=== PATIENT | female | born 1955 | race Caucasian/White ===

== ENCOUNTER 2017-10-21 19:09 | Inpatient (IN) ==
[~2017-10-21 19:09] MED LIST: ACETAMINOPHEN 325 MG TABLET PO PRN; BISACODYL 5 MG TABLET PO PRN; DEXTROSE 50% 25 GM/50 ML VIAL IV PRN; FUROSEMIDE 40 MG/4 ML VIAL IV ONE; GLUCAGON 1 MG VIAL IM PRN; LACTULOSE 20 GM/30 ML UDCUP PO PRN; MAGNESIUM SULF RIDER 2 GM in PREMIX 1 EACH IV PRN; MAGNESIUM SULF RIDER 4 GM in PREMIX 1 EACH IV PRN; MORPHINE 2 MG/1 ML SYRINGE IV PRN; ONDANSETRON 4 MG/2 ML VIAL IV PRN; ZALEPLON 5 MG CAPSULE PO PRN; diphenhydrAMINE CAP 25 MG CAPSULE PO PRN; guaiFENesin/DM ER 600-30 MG TABLET PO PRN
[2017-10-21 20:11] LABS: Basophils # 0.1 10*3/uL (0.0-0.2); Basophils % 0.6 % (0.0-0.8); Eosinophils # 0.2 10*3/uL (0.0-0.87); Eosinophils % 1.7 % (0.00-10.9); Hemoglobin 8.6 GM/DL (12.0-16.0); Immature Granulocytes % 0.6 %; Immature Granulocytes Absolute 0.06 #; Lymphocytes # 1.2 10*3/uL (1.4-4.0); Lymphocytes % 12.7 % (21.3-54.2); Mean Corpuscular HGB Conc 31.9 GM/DL (32-36); Mean Corpuscular Hemoglobin 29 PG (27-34); Mean Corpuscular Volume 89.7 FL (87-102); Mean Platelet Volume 9.3 FL (9.6-12.0); Monocytes % 10.2 % (1.7-12.7); Neutrophils # 6.9 10*3/uL (1.4-7.4); Neutrophils % 74.2 % (38.7-73.9); Platelet Count 484 T/CUMM (130-400); Red Blood Count 3.01 MC/CUMM (3.8-5.5); Red Cell Distribution Width 14.8 % (9.3-17.3); White Blood Count 9.3 T/CUMM (4-12)
[2017-10-21] MEDS ORDERED: ZALEPLON 5 MG CAPSULE PO PRN (20:30)
[2017-10-21 20:38] LABS: CKMB % 3.4 %; Troponin I Only 0.037 NG/ML (0.00-0.045)
[2017-10-21 20:41] LABS: Albumin 3.1 G/DL (3.4-5.0); Bilirubin,Total 0.4 MG/DL (0.2-1.0); Calcium 9.1 MG/DL (8.5-10.1); Osmolality,Calculated 289.7 MOS/KG (273-304); Total Protein 6.4 G/DL (6.4-8.3)
[2017-10-21] MEDS: ALBUTEROL 1.25 MG/3 ML NEB RESP TX SCH (20:42)
[2017-10-21] MEDS: INSULIN GLARGINE 100 UNIT/ML SUBCUT SCH (21:03)
[2017-10-21] MEDS: INSULIN REGULAR 100 UNIT/ML SUBCUT SCH (21:05)
[2017-10-21] MEDS: GABAPENTIN 300 MG CAPSULE PO SCH (21:05)
[2017-10-21] MEDS: ENOXAPARIN 30 MG/0.3 ML SYRINGE SUBCUT SCH (22:08)
[2017-10-21] MEDS: CIPROFLOXACIN/DEXAMETHASONE OTIC SUSP 7.5 ML BOTTLE LEFT EAR SCH (22:09)
[2017-10-22] MEDS: ALBUTEROL 1.25 MG/3 ML NEB RESP TX SCH ×7 (00:01→23:45)
[2017-10-22 04:29] LABS: Basophils # 0.1 10*3/uL (0.0-0.2); Basophils % 0.7 % (0.0-0.8); Eosinophils % 0.5 % (0.00-10.9); Hematocrit 25.2 VOL% (35.7-47.0); Immature Granulocytes % 0.6 %; Immature Granulocytes Absolute 0.05 #; Lymphocytes # 1.2 10*3/uL (1.4-4.0); Lymphocytes % 13.8 % (21.3-54.2); Mean Corpuscular HGB Conc 31.7 GM/DL (32-36); Mean Corpuscular Hemoglobin 29 PG (27-34); Mean Corpuscular Volume 89.7 FL (87-102); Mean Platelet Volume 9.7 FL (9.6-12.0); Monocytes # 1.1 10*3/uL (0.11-0.8); Monocytes % 11.9 % (1.7-12.7); Neutrophils # 6.4 10*3/uL (1.4-7.4); Neutrophils % 72.5 % (38.7-73.9); Platelet Count 437 T/CUMM (130-400); Red Blood Count 2.81 MC/CUMM (3.8-5.5); Red Cell Distribution Width 14.8 % (9.3-17.3); White Blood Count 8.8 T/CUMM (4-12)
[2017-10-22 04:47] LABS: Albumin 2.9 G/DL (3.4-5.0); Bilirubin,Total 0.5 MG/DL (0.2-1.0); Calcium 8.6 MG/DL (8.5-10.1); Osmolality,Calculated 293.5 MOS/KG (273-304); Potassium 5.9 MMOL/L (3.5-5.1); Risk Ratio 5.64; Total Protein 6.2 G/DL (6.4-8.3); VLDL CHOLESTEROL 22.6 MG/DL
[2017-10-22 04:49] LABS: CKMB % 2.9 %
[2017-10-22 04:50] LABS: Troponin I Only 0.053 NG/ML (0.00-0.045)
[2017-10-22] MEDS: INSULIN REGULAR 100 UNIT/ML SUBCUT SCH ×10 (05:08→21:54)
[2017-10-22] MEDS: CETIRIZINE 10 MG TABLET PO SCH (08:31)
[2017-10-22] MEDS: LOSARTAN 25 MG TABLET PO SCH (08:31)
[2017-10-22] MEDS: CLOPIDOGREL 75 MG TABLET PO SCH (08:31)
[2017-10-22] MEDS: VENLAFAXINE XR 75 MG CAPSULE PO SCH (08:31)
[2017-10-22] MEDS: PANTOPRAZOLE 40 MG TABLET PO SCH (08:31)
[2017-10-22] MEDS: CHOLECALCIFEROL 5,000 UNIT TABLET PO SCH (08:31)
[2017-10-22] MEDS: MULTIVITAMIN (CENTRUM) TABLET PO SCH (08:31)
[2017-10-22] MEDS: ASPIRIN 325 MG TABLET PO SCH (08:31)
[2017-10-22] MEDS: GABAPENTIN 300 MG CAPSULE PO SCH ×2 (08:32→21:54)
[2017-10-22] MEDS ORDERED: VENLAFAXINE XR 75 MG CAPSULE PO SCH (09:00)
[2017-10-22] MEDS ORDERED: PANTOPRAZOLE 40 MG TABLET PO SCH (09:00)
[2017-10-22] MEDS: CIPROFLOXACIN/DEXAMETHASONE OTIC SUSP 7.5 ML BOTTLE LEFT EAR SCH ×2 (09:05→21:54)
[2017-10-22 11:36] LABS: CKMB % 2.9 %
[2017-10-22 11:41] LABS: Troponin I Only 0.051 NG/ML (0.00-0.045)
[2017-10-22] MEDS: DEXTROSE 50% 25 GM/50 ML VIAL IV PRN (12:15)
[2017-10-22] MEDS: metOLazone 2.5 MG TABLET PO SCH (14:16)
[2017-10-22] MEDS ORDERED: LEVOFLOXACIN 500 MG TABLET PO SCH (18:14)
[2017-10-22] MEDS: INSULIN GLARGINE 100 UNIT/ML SUBCUT SCH (21:54)
[2017-10-22] MEDS: ENOXAPARIN 30 MG/0.3 ML SYRINGE SUBCUT SCH (21:54)
[2017-10-23] MEDS: ALBUTEROL 1.25 MG/3 ML NEB RESP TX SCH ×5 (03:16→20:31)
[2017-10-23 05:05] LABS: Basophils % 0.5 % (0.0-0.8); Eosinophils # 0.3 10*3/uL (0.0-0.87); Eosinophils % 2.8 % (0.00-10.9); Hematocrit 24.5 VOL% (35.7-47.0); Hemoglobin 7.8 GM/DL (12.0-16.0); Immature Granulocytes % 0.5 %; Immature Granulocytes Absolute 0.04 #; Lymphocytes # 1.7 10*3/uL (1.4-4.0); Lymphocytes % 19.1 % (21.3-54.2); Mean Corpuscular HGB Conc 31.8 GM/DL (32-36); Mean Corpuscular Hemoglobin 28 PG (27-34); Mean Corpuscular Volume 88.8 FL (87-102); Mean Platelet Volume 9.3 FL (9.6-12.0); Monocytes # 1.2 10*3/uL (0.11-0.8); Monocytes % 13.8 % (1.7-12.7); Neutrophils # 5.6 10*3/uL (1.4-7.4); Neutrophils % 63.3 % (38.7-73.9); Platelet Count 402 T/CUMM (130-400); Red Blood Count 2.76 MC/CUMM (3.8-5.5); Red Cell Distribution Width 14.9 % (9.3-17.3); White Blood Count 8.9 T/CUMM (4-12)
[2017-10-23 05:54] LABS: Free T4 (Free Thyroxine) 0.91 NG/DL (0.76-1.46); Magnesium 2.3 MG/DL (1.8-2.4); Thyroid Stimulating Hormone 1.11 uIU/ml (0.358-3.74)
[2017-10-23 05:55] LABS: Alanine Aminotransferase 10 U/L (13-56); Albumin 2.5 G/DL (3.4-5.0); Alkaline Phosphatase 119 U/L (45-117); Aspartate Amino Transferase 17 U/L (0-37); Bilirubin,Total < 0.39 MG/DL (0.2-1.0); Blood Urea Nitrogen 37 MG/DL (7-18); Calcium 8.9 MG/DL (8.5-10.1); Glucose 96 MG/DL (74-106); Osmolality,Calculated 283.7 MOS/KG (273-304); Potassium 4.6 MMOL/L (3.5-5.1); Sodium 138 MMOL/L (136-145); Total Protein 5.7 G/DL (6.4-8.3)
[2017-10-23] MEDS: INSULIN REGULAR 100 UNIT/ML SUBCUT SCH ×7 (08:28→22:49)
[2017-10-23] MEDS: MULTIVITAMIN (CENTRUM) TABLET PO SCH (08:29)
[2017-10-23] MEDS: CHOLECALCIFEROL 5,000 UNIT TABLET PO SCH (08:29)
[2017-10-23] MEDS: ASPIRIN 325 MG TABLET PO SCH (08:29)
[2017-10-23] MEDS: VENLAFAXINE XR 75 MG CAPSULE PO SCH (08:29)
[2017-10-23] MEDS: CLOPIDOGREL 75 MG TABLET PO SCH (08:30)
[2017-10-23] MEDS: LOSARTAN 25 MG TABLET PO SCH (08:30)
[2017-10-23] MEDS: CETIRIZINE 10 MG TABLET PO SCH (08:30)
[2017-10-23] MEDS: metOLazone 2.5 MG TABLET PO SCH (08:30)
[2017-10-23] MEDS: PANTOPRAZOLE 40 MG TABLET PO SCH (08:30)
[2017-10-23] MEDS: GABAPENTIN 300 MG CAPSULE PO SCH ×2 (08:30→22:49)
[2017-10-23] MEDS: CIPROFLOXACIN/DEXAMETHASONE OTIC SUSP 7.5 ML BOTTLE LEFT EAR SCH ×2 (08:30→22:49)
[2017-10-23] MEDS ORDERED: SODIUM CHLORIDE 0.9% 1,000 ML IV PRN (11:38)
[2017-10-23] MEDS ORDERED: FUROSEMIDE 40 MG/4 ML VIAL IV ONE (15:30)
[2017-10-23 17:38] LABS: Apearance,Urine CLEAR (Clear); Bacteria,Urine Occasional /HPF (Few); Bilirubin,Urine Negative (Negative); Blood, Urine Small mg/dL (Negative); Glucose,Urine (UA) 150 mg/dL (Negative); Ketones,Urine Negative (Negative); Nitrite,Urine Negative (Negative); Protein,Urine 100 MG/DL; RBC,Urine 4 /HPF (0-4); Squamous Epithelial Cell,Urine Occasional /HPF (0-10); Urine Color Yellow (Yellow); Urine Specific Gravity 1.009 (1.001-1.035); Urine Urobilinogen < 2.0 EU/DL (0.2-1.0); WBC,Urine 3 /HPF (0-6)
[2017-10-23] MEDS: INSULIN GLARGINE 100 UNIT/ML SUBCUT SCH (22:49)
[2017-10-23] MEDS: ENOXAPARIN 30 MG/0.3 ML SYRINGE SUBCUT SCH (22:50)
[2017-10-24] MEDS: ALBUTEROL 1.25 MG/3 ML NEB RESP TX SCH ×6 (00:42→19:41)
[2017-10-24 05:56] LABS: Basophils # 0.1 10*3/uL (0.0-0.2); Basophils % 0.7 % (0.0-0.8); Eosinophils # 0.4 10*3/uL (0.0-0.87); Eosinophils % 4.1 % (0.00-10.9); Hematocrit 31.6 VOL% (35.7-47.0); Hemoglobin 10.3 GM/DL (12.0-16.0); Immature Granulocytes % 0.4 %; Immature Granulocytes Absolute 0.04 #; Lymphocytes # 1.3 10*3/uL (1.4-4.0); Lymphocytes % 14.3 % (21.3-54.2); Mean Corpuscular HGB Conc 32.6 GM/DL (32-36); Mean Corpuscular Hemoglobin 29 PG (27-34); Mean Platelet Volume 9.5 FL (9.6-12.0); Monocytes % 10.8 % (1.7-12.7); Neutrophils # 6.2 10*3/uL (1.4-7.4); Neutrophils % 69.7 % (38.7-73.9); Platelet Count 441 T/CUMM (130-400); Red Blood Count 3.59 MC/CUMM (3.8-5.5); Red Cell Distribution Width 15.7 % (9.3-17.3)
[2017-10-24 06:39] LABS: Albumin 2.8 G/DL (3.4-5.0); Osmolality,Calculated 284.5 MOS/KG (273-304); Potassium 5.5 MMOL/L (3.5-5.1); Total Protein 6.3 G/DL (6.4-8.3)
[2017-10-24] MEDS: CLOPIDOGREL 75 MG TABLET PO SCH (08:54)
[2017-10-24] MEDS: INSULIN REGULAR 100 UNIT/ML SUBCUT SCH ×7 (08:54→22:06)
[2017-10-24] MEDS: GABAPENTIN 300 MG CAPSULE PO SCH ×2 (08:54→21:17)
[2017-10-24] MEDS: LOSARTAN 25 MG TABLET PO SCH (08:54)
[2017-10-24] MEDS: VENLAFAXINE XR 75 MG CAPSULE PO SCH (08:55)
[2017-10-24] MEDS: FUROSEMIDE 20 MG TABLET PO SCH (08:55)
[2017-10-24] MEDS: ASPIRIN 325 MG TABLET PO SCH (08:55)
[2017-10-24] MEDS: CHOLECALCIFEROL 5,000 UNIT TABLET PO SCH (08:55)
[2017-10-24] MEDS: PANTOPRAZOLE 40 MG TABLET PO SCH (08:55)
[2017-10-24] MEDS: metOLazone 2.5 MG TABLET PO SCH (08:55)
[2017-10-24] MEDS: MULTIVITAMIN (CENTRUM) TABLET PO SCH (08:55)
[2017-10-24] MEDS: CIPROFLOXACIN/DEXAMETHASONE OTIC SUSP 7.5 ML BOTTLE LEFT EAR SCH ×2 (08:55→22:38)
[2017-10-24] MEDS: CETIRIZINE 10 MG TABLET PO SCH (08:55)
[2017-10-24] MEDS: ENOXAPARIN 30 MG/0.3 ML SYRINGE SUBCUT SCH (21:17)
[2017-10-24] MEDS: INSULIN GLARGINE 100 UNIT/ML SUBCUT SCH (22:06)
[2017-10-25] MEDS: ALBUTEROL 1.25 MG/3 ML NEB RESP TX SCH ×7 (00:29→22:30)
[2017-10-25] MEDS: INSULIN REGULAR 100 UNIT/ML SUBCUT SCH ×6 (04:45→17:27)
[2017-10-25] MEDS: cloNIDine 0.1 MG TABLET PO PRN ×2 (05:14→21:57)
[2017-10-25 07:13] LABS: Calcium 8.7 MG/DL (8.5-10.1); Magnesium 2.3 MG/DL (1.8-2.4); Osmolality,Calculated 297.5 MOS/KG (273-304); Potassium 5.6 MMOL/L (3.5-5.1)
[2017-10-25] MEDS: ASPIRIN 325 MG TABLET PO SCH (09:07)
[2017-10-25] MEDS: PANTOPRAZOLE 40 MG TABLET PO SCH (09:07)
[2017-10-25] MEDS: FUROSEMIDE 20 MG TABLET PO SCH (09:07)
[2017-10-25] MEDS: MULTIVITAMIN (CENTRUM) TABLET PO SCH (09:07)
[2017-10-25] MEDS: CHOLECALCIFEROL 5,000 UNIT TABLET PO SCH (09:07)
[2017-10-25] MEDS: VENLAFAXINE XR 75 MG CAPSULE PO SCH (09:07)
[2017-10-25] MEDS: CIPROFLOXACIN/DEXAMETHASONE OTIC SUSP 7.5 ML BOTTLE LEFT EAR SCH ×2 (09:08→21:57)
[2017-10-25] MEDS: metOLazone 2.5 MG TABLET PO SCH (09:08)
[2017-10-25] MEDS: GABAPENTIN 300 MG CAPSULE PO SCH ×2 (09:08→21:57)
[2017-10-25] MEDS: CETIRIZINE 10 MG TABLET PO SCH (09:08)
[2017-10-25] MEDS: CLOPIDOGREL 75 MG TABLET PO SCH (10:10)
[2017-10-25] MEDS: DEXTROSE 50% 25 GM/50 ML VIAL IV PRN (12:08)
[2017-10-25] MEDS: FUROSEMIDE 40 MG/4 ML VIAL IV SCH (16:51)
[2017-10-25] MEDS: INSULIN GLARGINE 100 UNIT/ML SUBCUT SCH (21:56)
[2017-10-25] MEDS: ENOXAPARIN 30 MG/0.3 ML SYRINGE SUBCUT SCH (21:57)
[2017-10-26] MEDS: ALBUTEROL 1.25 MG/3 ML NEB RESP TX SCH ×6 (04:20→23:31)
[2017-10-26 05:52] LABS: Basophils # 0.1 10*3/uL (0.0-0.2); Basophils % 0.9 % (0.0-0.8); Eosinophils # 0.3 10*3/uL (0.0-0.87); Eosinophils % 4.5 % (0.00-10.9); Hematocrit 33.1 VOL% (35.7-47.0); Hemoglobin 10.6 GM/DL (12.0-16.0); Immature Granulocytes % 0.4 %; Immature Granulocytes Absolute 0.03 #; Lymphocytes # 1.2 10*3/uL (1.4-4.0); Lymphocytes % 17.4 % (21.3-54.2); Mean Corpuscular Hemoglobin 28 PG (27-34); Mean Corpuscular Volume 87.1 FL (87-102); Mean Platelet Volume 9.6 FL (9.6-12.0); Monocytes % 13.8 % (1.7-12.7); Neutrophils # 4.4 10*3/uL (1.4-7.4); Platelet Count 412 T/CUMM (130-400); Red Cell Distribution Width 14.8 % (9.3-17.3); White Blood Count 7.1 T/CUMM (4-12)
[2017-10-26 06:09] LABS: Calcium 8.5 MG/DL (8.5-10.1); Magnesium 2.3 MG/DL (1.8-2.4); Osmolality,Calculated 294.8 MOS/KG (273-304); Potassium 5.4 MMOL/L (3.5-5.1)
[2017-10-26] MEDS: INSULIN REGULAR 100 UNIT/ML SUBCUT SCH ×4 (06:58→16:42)
[2017-10-26] MEDS ORDERED: GLUCAGON 1 MG VIAL IM PRN (08:36)
[2017-10-26] MEDS ORDERED: DEXTROSE 50% 25 GM/50 ML VIAL IV PRN (08:36)
[2017-10-26] MEDS: MULTIVITAMIN (CENTRUM) TABLET PO SCH (09:11)
[2017-10-26] MEDS: FUROSEMIDE 40 MG/4 ML VIAL IV SCH ×2 (09:11→16:42)
[2017-10-26] MEDS: metOLazone 5 MG TABLET PO SCH (09:11)
[2017-10-26] MEDS: ASPIRIN 325 MG TABLET PO SCH (09:11)
[2017-10-26] MEDS: CETIRIZINE 10 MG TABLET PO SCH (09:11)
[2017-10-26] MEDS: GABAPENTIN 300 MG CAPSULE PO SCH ×2 (09:11→20:59)
[2017-10-26] MEDS: VENLAFAXINE XR 75 MG CAPSULE PO SCH (09:11)
[2017-10-26] MEDS: PANTOPRAZOLE 40 MG TABLET PO SCH (09:11)
[2017-10-26] MEDS: CIPROFLOXACIN/DEXAMETHASONE OTIC SUSP 7.5 ML BOTTLE LEFT EAR SCH ×2 (09:12→21:00)
[2017-10-26] MEDS: CHLORHEXIDINE 0.12% ORAL RINSE 60 ML BOTTLE SWISH/SPIT SCH ×2 (09:19→21:00)
[2017-10-26] MEDS: CHOLECALCIFEROL 5,000 UNIT TABLET PO SCH (09:19)
[2017-10-26] MEDS: cloNIDine 0.1 MG TABLET PO PRN (18:57)
[2017-10-26] MEDS: ENOXAPARIN 30 MG/0.3 ML SYRINGE SUBCUT SCH (20:58)
[2017-10-26] MEDS: INSULIN GLARGINE 100 UNIT/ML SUBCUT SCH (20:59)
[2017-10-26] MEDS: SODIUM CHLORIDE 0.9% 1,000 ML IV SCH (21:58)
[2017-10-27] MEDS: ALBUTEROL 1.25 MG/3 ML NEB RESP TX SCH ×5 (03:23→20:55)
[2017-10-27 03:30] LABS: ABG Base Excess 2.7 MMOL/L (-2.5-2.5); ABG HCO3 26.8 MMOL/L (20-26); ABG Oxygen Saturation 96.4 % (95-100); ABG PCO2 44.6 MM HG (35-48); ABG PH 7.404 (7.35-7.45); ABG PO2 77.9 MM HG (80-95)
[2017-10-27 06:01] LABS: Basophils # 0.1 10*3/uL (0.0-0.2); Basophils % 0.8 % (0.0-0.8); Eosinophils # 0.4 10*3/uL (0.0-0.87); Eosinophils % 4.7 % (0.00-10.9); Hematocrit 34.3 VOL% (35.7-47.0); Hemoglobin 11.3 GM/DL (12.0-16.0); Immature Granulocytes % 0.3 %; Immature Granulocytes Absolute 0.02 #; Lymphocytes # 1.7 10*3/uL (1.4-4.0); Lymphocytes % 22.2 % (21.3-54.2); Mean Corpuscular HGB Conc 32.9 GM/DL (32-36); Mean Corpuscular Hemoglobin 29 PG (27-34); Mean Corpuscular Volume 87.1 FL (87-102); Mean Platelet Volume 9.3 FL (9.6-12.0); Monocytes # 0.8 10*3/uL (0.11-0.8); Monocytes % 10.3 % (1.7-12.7); Neutrophils # 4.9 10*3/uL (1.4-7.4); Neutrophils % 61.7 % (38.7-73.9); Platelet Count 420 T/CUMM (130-400); Red Blood Count 3.94 MC/CUMM (3.8-5.5); Red Cell Distribution Width 14.7 % (9.3-17.3); White Blood Count 7.9 T/CUMM (4-12)
[2017-10-27 06:22] LABS: Albumin 2.7 G/DL (3.4-5.0); Bilirubin,Total 0.7 MG/DL (0.2-1.0); Calcium 8.8 MG/DL (8.5-10.1); Osmolality,Calculated 287.2 MOS/KG (273-304); Potassium 4.8 MMOL/L (3.5-5.1); Total Protein 6.3 G/DL (6.4-8.3)
[2017-10-27] MEDS: INSULIN REGULAR 100 UNIT/ML SUBCUT SCH ×4 (06:56→16:21)
[2017-10-27] MEDS: CETIRIZINE 10 MG TABLET PO SCH (08:43)
[2017-10-27] MEDS: metOLazone 5 MG TABLET PO SCH (08:44)
[2017-10-27] MEDS: PANTOPRAZOLE 40 MG TABLET PO SCH (08:44)
[2017-10-27] MEDS: GABAPENTIN 300 MG CAPSULE PO SCH ×2 (08:44→21:20)
[2017-10-27] MEDS: CHOLECALCIFEROL 5,000 UNIT TABLET PO SCH (08:44)
[2017-10-27] MEDS: FUROSEMIDE 40 MG/4 ML VIAL IV SCH ×2 (08:44→16:17)
[2017-10-27] MEDS: ASPIRIN 325 MG TABLET PO SCH (08:44)
[2017-10-27] MEDS: MULTIVITAMIN (CENTRUM) TABLET PO SCH (08:44)
[2017-10-27] MEDS: VENLAFAXINE XR 75 MG CAPSULE PO SCH (08:44)
[2017-10-27] MEDS: SODIUM CHLORIDE 0.9% 1,000 ML IV SCH (09:05)
[2017-10-27] MEDS: CIPROFLOXACIN/DEXAMETHASONE OTIC SUSP 7.5 ML BOTTLE LEFT EAR SCH ×2 (09:19→21:20)
[2017-10-27] MEDS: CHLORHEXIDINE 0.12% ORAL RINSE 60 ML BOTTLE SWISH/SPIT SCH ×2 (09:20→21:20)
[2017-10-27] MEDS: INSULIN GLARGINE 100 UNIT/ML SUBCUT SCH (21:19)
[2017-10-27] MEDS: ENOXAPARIN 30 MG/0.3 ML SYRINGE SUBCUT SCH (21:20)
[2017-10-28] MEDS: ALBUTEROL 1.25 MG/3 ML NEB RESP TX SCH ×6 (00:05→20:28)
[2017-10-28] MEDS: ASPIRIN 325 MG TABLET PO SCH (08:53)
[2017-10-28] MEDS: VENLAFAXINE XR 75 MG CAPSULE PO SCH (08:53)
[2017-10-28] MEDS: PANTOPRAZOLE 40 MG TABLET PO SCH (08:53)
[2017-10-28] MEDS: CHLORHEXIDINE 0.12% ORAL RINSE 60 ML BOTTLE SWISH/SPIT SCH ×2 (08:54→20:51)
[2017-10-28] MEDS: CIPROFLOXACIN/DEXAMETHASONE OTIC SUSP 7.5 ML BOTTLE LEFT EAR SCH ×2 (08:54→20:50)
[2017-10-28] MEDS: GABAPENTIN 300 MG CAPSULE PO SCH ×2 (08:54→20:50)
[2017-10-28] MEDS: CHOLECALCIFEROL 5,000 UNIT TABLET PO SCH (08:54)
[2017-10-28] MEDS: MULTIVITAMIN (CENTRUM) TABLET PO SCH (08:54)
[2017-10-28] MEDS: metOLazone 5 MG TABLET PO SCH (08:54)
[2017-10-28] MEDS: SODIUM CHLORIDE 0.9% 1,000 ML IV SCH (08:54)
[2017-10-28] MEDS: FUROSEMIDE 40 MG/4 ML VIAL IV SCH ×2 (08:55→16:50)
[2017-10-28] MEDS: CETIRIZINE 10 MG TABLET PO SCH (08:59)
[2017-10-28] MEDS: INSULIN REGULAR 100 UNIT/ML SUBCUT SCH ×2 (09:04→12:45)
[2017-10-28] MEDS: INSULIN LISPRO 100 UNIT/ML SUBCUT SCH (16:31)
[2017-10-28] MEDS: INSULIN GLARGINE 100 UNIT/ML SUBCUT SCH (20:49)
[2017-10-28] MEDS: ENOXAPARIN 30 MG/0.3 ML SYRINGE SUBCUT SCH (20:49)
[2017-10-29] MEDS: ALBUTEROL 1.25 MG/3 ML NEB RESP TX SCH ×7 (00:45→23:59)
[2017-10-29 04:52] LABS: Basophils # 0.1 10*3/uL (0.0-0.2); Basophils % 0.9 % (0.0-0.8); Eosinophils # 0.4 10*3/uL (0.0-0.87); Eosinophils % 5.7 % (0.00-10.9); Hematocrit 35.6 VOL% (35.7-47.0); Hemoglobin 11.6 GM/DL (12.0-16.0); Immature Granulocytes % 0.3 %; Immature Granulocytes Absolute 0.02 #; Lymphocytes # 2.2 10*3/uL (1.4-4.0); Lymphocytes % 27.8 % (21.3-54.2); Mean Corpuscular HGB Conc 32.6 GM/DL (32-36); Mean Corpuscular Hemoglobin 28 PG (27-34); Mean Platelet Volume 9.7 FL (9.6-12.0); Monocytes # 0.8 10*3/uL (0.11-0.8); Monocytes % 10.7 % (1.7-12.7); Neutrophils # 4.3 10*3/uL (1.4-7.4); Neutrophils % 54.6 % (38.7-73.9); Platelet Count 412 T/CUMM (130-400); Red Blood Count 4.14 MC/CUMM (3.8-5.5); Red Cell Distribution Width 14.3 % (9.3-17.3); White Blood Count 7.8 T/CUMM (4-12)
[2017-10-29 05:20] LABS: Calcium 8.9 MG/DL (8.5-10.1); Magnesium 2.4 MG/DL (1.8-2.4); Osmolality,Calculated 292.1 MOS/KG (273-304)
[2017-10-29] MEDS: CHOLECALCIFEROL 5,000 UNIT TABLET PO SCH (08:43)
[2017-10-29] MEDS: VENLAFAXINE XR 75 MG CAPSULE PO SCH (08:43)
[2017-10-29] MEDS: ASPIRIN 325 MG TABLET PO SCH (08:44)
[2017-10-29] MEDS: GABAPENTIN 300 MG CAPSULE PO SCH ×2 (08:44→21:58)
[2017-10-29] MEDS: INSULIN LISPRO 100 UNIT/ML SUBCUT SCH ×4 (08:44→21:57)
[2017-10-29] MEDS: FUROSEMIDE 40 MG/4 ML VIAL IV SCH ×2 (08:44→21:57)
[2017-10-29] MEDS: MULTIVITAMIN (CENTRUM) TABLET PO SCH (08:44)
[2017-10-29] MEDS: metOLazone 5 MG TABLET PO SCH (08:44)
[2017-10-29] MEDS: PANTOPRAZOLE 40 MG TABLET PO SCH (08:44)
[2017-10-29] MEDS: CETIRIZINE 10 MG TABLET PO SCH (08:44)
[2017-10-29] MEDS: CHLORHEXIDINE 4% SOLN 118 ML BOTTLE TOP SCH ×3 (08:46→22:11)
[2017-10-29] MEDS: CIPROFLOXACIN/DEXAMETHASONE OTIC SUSP 7.5 ML BOTTLE LEFT EAR SCH ×2 (10:57→22:11)
[2017-10-29] MEDS: CHLORHEXIDINE 0.12% ORAL RINSE 60 ML BOTTLE SWISH/SPIT SCH ×2 (10:57→22:11)
[2017-10-29] MEDS: SODIUM CHLORIDE 0.9% 1,000 ML IV SCH ×2 (10:57→13:13)
[2017-10-29 17:51] LABS: % Iron Saturation 19.7 % (18-50)
[2017-10-29] MEDS: INSULIN GLARGINE 100 UNIT/ML SUBCUT SCH (21:58)
[2017-10-30] MEDS: INSULIN LISPRO 100 UNIT/ML SUBCUT ONE ×2 (00:28→01:14)
[2017-10-30] MEDS ORDERED: INSULIN LISPRO 100 UNIT/ML SUBCUT ONE (00:34)
[2017-10-30] MEDS: ALBUTEROL 1.25 MG/3 ML NEB RESP TX SCH ×3 (03:56→16:09)
[2017-10-30] MEDS ORDERED: VANCOMYCIN 1,000 MG VIAL ONE (05:31)
[2017-10-30] MEDS ORDERED: FAMOTIDINE 20 MG TABLET PO ONE (06:00)
[2017-10-30] MEDS ORDERED: LORazepam 1 MG TABLET PO ONE (06:00)
[2017-10-30 06:59] LABS: Basophils # 0.1 10*3/uL (0.0-0.2); Basophils % 0.9 % (0.0-0.8); Eosinophils # 0.5 10*3/uL (0.0-0.87); Eosinophils % 6.6 % (0.00-10.9); Hemoglobin 10.8 GM/DL (12.0-16.0); Immature Granulocytes % 0.3 %; Immature Granulocytes Absolute 0.02 #; Lymphocytes # 1.6 10*3/uL (1.4-4.0); Lymphocytes % 21.3 % (21.3-54.2); Mean Corpuscular HGB Conc 32.7 GM/DL (32-36); Mean Corpuscular Hemoglobin 28 PG (27-34); Mean Corpuscular Volume 86.2 FL (87-102); Mean Platelet Volume 9.7 FL (9.6-12.0); Monocytes % 12.9 % (1.7-12.7); Neutrophils # 4.3 10*3/uL (1.4-7.4); Platelet Count 357 T/CUMM (130-400); Red Blood Count 3.83 MC/CUMM (3.8-5.5); Red Cell Distribution Width 14.2 % (9.3-17.3); White Blood Count 7.4 T/CUMM (4-12)
[2017-10-30] MEDS ORDERED: CEFUROXIME INJ 1,500 MG in SYRINGE 1 EACH IV ONE (07:00)
[2017-10-30 07:32] LABS: Magnesium 2.6 MG/DL (1.8-2.4); Osmolality,Calculated 289.5 MOS/KG (273-304); Potassium 4.6 MMOL/L (3.5-5.1)
[2017-10-30 08:58] LABS: ABG Base Excess 0.9 MMOL/L (-2.5-2.5); ABG HCO3 23.2 MMOL/L (20-26); ABG Oxygen Saturation 99.4 % (95-100); ABG PCO2 29.1 MM HG (35-48); ABG PO2 372.8 MM HG (80-95); ABG TCO2 24.1 MMOL/L (23-27); Glucose Heart Surgery 274 MG/DL (74-106); Hemoglobin Heart Surgery 10.2 G/DL (12.0-16.0); Ionized Calcium Arterial 1.03 MMOL/L (1.21-1.46); PCO2 Patient Temp Arterial 29.1 MMHG; PO2 Patient Temp Arterial 372.8 MM HG; Patient Temperature 37 CELCIUS; Potassium Heart/CVR 4.6 MMOL/L (3.5-5.1); Sodium Heart/CVR 127 MMOL/L (135-145)
[2017-10-30] MEDS ORDERED: NITROPRUSSIDE 50 MG/2 ML VIAL ONE (09:14)
[2017-10-30] MEDS ORDERED: PHENYLEPHRINE DRIP 40 MG/250 ML PREMIX IV ONE (09:14)
[2017-10-30] MEDS ORDERED: CALCIUM CHLORIDE 1,000 MG/10 ML SYRINGE IV ONE (09:15)
[2017-10-30 09:36] LABS: Apearance,Urine CLEAR (Clear); Bilirubin,Urine Negative (Negative); Blood, Urine Small mg/dL (Negative); Glucose,Urine (UA) 50 mg/dL (Negative); Ketones,Urine Negative (Negative); Nitrite,Urine Negative (Negative); Protein,Urine 100 MG/DL; RBC,Urine 1 /HPF (0-4); Urine Color Straw (Yellow); Urine Specific Gravity 1.006 (1.001-1.035); Urine Urobilinogen < 2.0 EU/DL (0.2-1.0)
[2017-10-30 09:49] LABS: Hematocrit Heart Surgery 24.2 PERCENT (37-47); Hemoglobin Heart Surgery 7.8 G/DL (12.0-16.0); PCO2 Patient Temp Venous 34.1 MM HG; PH Patient Temp Venous 7.432; PO2 Patient Temp Venous 34.2 MM HG; Potassium Heart/CVR 5.4 MMOL/L (3.5-5.1); VBG Base Excess -1.1 MEQ/L (0-4); VBG HCO3 23.3 MEQ/L (24-28); VBG Oxygen Saturation 78.6 %; VBG PCO2 39.4 MMHG (41-51); VBG PH 7.388; VBG PO2 42.1 MMHG (17-40)
[2017-10-30] MEDS ORDERED: INSULIN REGULAR 100 UNIT/ML ONE ×3 (09:53→11:50)
[2017-10-30 10:12] LABS: Hematocrit Heart Surgery 26.2 PERCENT (37-47); Hemoglobin Heart Surgery 8.4 G/DL (12.0-16.0); PCO2 Patient Temp Venous 33.5 MM HG; PH Patient Temp Venous 7.441; PO2 Patient Temp Venous 37.3 MM HG; Potassium Heart/CVR 4.7 MMOL/L (3.5-5.1); VBG Base Excess -0.8 MEQ/L (0-4); VBG HCO3 23.5 MEQ/L (24-28); VBG Oxygen Saturation 79.7 %; VBG PCO2 36.9 MMHG (41-51); VBG PH 7.412; VBG PO2 42.9 MMHG (17-40)
[2017-10-30] MEDS ORDERED: PROTAMINE SULFATE 250 MG/25 ML VIAL IV ONE (10:56)
[2017-10-30] MEDS ORDERED: MAGNESIUM SULFATE 1 GM/2 ML VIAL ONE (10:56)
[2017-10-30] MEDS ORDERED: SODIUM BICARBONATE 50 MEQ/50 ML SYRINGE IV ONE (10:56)
[2017-10-30] MEDS ORDERED: methylPREDNISolone SOD SUC 1,000 MG/8 ML VIAL ONE (10:56)
[2017-10-30] MEDS ORDERED: MANNITOL 12.5 GM/50 ML VIAL IV ONE (10:57)
[2017-10-30] MEDS ORDERED: DEXTROSE 5% KCL 20 MEQ 20 MEQ/1,000 ML BAG IV ONE (10:58)
[2017-10-30] MEDS ORDERED: FUROSEMIDE 20 MG/2 ML VIAL ONE (10:59)
[2017-10-30 11:05] LABS: ABG Base Excess -3.6 MMOL/L (-2.5-2.5); ABG HCO3 21.5 MMOL/L (20-26); ABG PCO2 38.7 MM HG (35-48); ABG PH 7.355 (7.35-7.45); ABG TCO2 20.3 MMOL/L (23-27); Glucose Heart Surgery 297 MG/DL (74-106); Hematocrit Heart Surgery 24.1 PERCENT (37-47); Hemoglobin Heart Surgery 7.7 G/DL (12.0-16.0); Ionized Calcium Arterial 1.18 MMOL/L (1.21-1.46); PCO2 Patient Temp Arterial 38.7 MMHG; PH Patient Temp Arterial 7.355; Patient Temperature 37 CELCIUS; Potassium Heart/CVR 4.4 MMOL/L (3.5-5.1); Sodium Heart/CVR 128 MMOL/L (135-145)
[2017-10-30] MEDS: SODIUM CHLORIDE 0.45% 1,000 ML IV SCH ×2 (12:00)
[2017-10-30] MEDS ORDERED: CALCIUM CHLORIDE 1,000 MG/10 ML VIAL IV ONE (12:18)
[2017-10-30] MEDS ORDERED: HEPARIN/NACL 0.9% 2 UNITS/ML 1,000 ML IV ONE (12:19)
[2017-10-30] MEDS ORDERED: SEVOFLURANE 1 UNIT/15 MINUTE INH ONE (12:19)
[2017-10-30] MEDS ORDERED: SUFentanil 250 MCG/5 ML AMP ONE (12:19)
[2017-10-30] MEDS ORDERED: ETOMIDATE 40 MG/20 ML VIAL IV ONE (12:20)
[2017-10-30] MEDS ORDERED: PHENYLEPHRINE 50 MG/5 ML VIAL ONE (12:20)
[2017-10-30] MEDS ORDERED: VECURONIUM 10 MG VIAL IV ONE (12:20)
[2017-10-30] MEDS ORDERED: MIDAZOLAM 10 MG/2 ML VIAL ONE (12:20)
[2017-10-30] MEDS ORDERED: MINERAL OIL/PETROLATUM OPH OINT 3.5 GM TUBE ONE (12:20)
[2017-10-30] MEDS ORDERED: SODIUM CHLORIDE 0.9% 200 ML IV ONE (12:21)
[2017-10-30] MEDS ORDERED: NITROGLYCERIN DRIP 50 MG/250 ML BOTTLE IV ONE (12:21)
[2017-10-30] MEDS ORDERED: SODIUM CHLORIDE 0.9% 250 ML IV ONE (12:21)
[2017-10-30] MEDS ORDERED: AMINOCAPROIC ACID 5,000 MG/20 ML VIAL IV ONE (12:21)
[2017-10-30] MEDS ORDERED: SODIUM CHLORIDE 0.9% 2,000 ML IV ONE (12:21)
[2017-10-30] MEDS ORDERED: PHENYLEPHRINE DRIP 40 MG/250 ML PREMIX IV PRN (12:29)
[2017-10-30] MEDS ORDERED: INSULIN REGULAR 100 UNIT/ML IV PRN (12:29)
[2017-10-30] MEDS ORDERED: NITROPRUSSIDE 100 MG in DEXTROSE 5% 250 ML IV PRN (12:29)
[2017-10-30] MEDS ORDERED: VECURONIUM 10 MG VIAL IV PRN ×2 (12:29)
[2017-10-30] MEDS ORDERED: POTASSIUM CHLORIDE RIDER 10 MEQ in PREMIX 1 EACH IV PRN (12:29)
[2017-10-30] MEDS ORDERED: LACTATED RINGERS 250 ML IV PRN (12:29)
[2017-10-30] MEDS ORDERED: MORPHINE 10 MG/1 ML VIAL IV PRN (12:29)
[2017-10-30] MEDS ORDERED: CALCIUM CHLORIDE 1,000 MG/10 ML SYRINGE IV PRN (12:29)
[2017-10-30] MEDS ORDERED: ACETAMINOPHEN 650 MG SUPP RECTAL PRN (12:29)
[2017-10-30] MEDS ORDERED: DEXTROSE 50% 25 GM/50 ML VIAL IV PRN ×2 (12:29)
[2017-10-30] MEDS ORDERED: MIDAZOLAM 10 MG/2 ML VIAL IV PRN (12:29)
[2017-10-30] MEDS ORDERED: ONDANSETRON 4 MG/2 ML VIAL IV PRN (12:29)
[2017-10-30] MEDS ORDERED: MAGNESIUM SULF RIDER 2 GM in PREMIX 1 EACH IV PRN (12:29)
[2017-10-30] MEDS ORDERED: MAGNESIUM SULF RIDER 4 GM in PREMIX 1 EACH IV PRN (12:29)
[2017-10-30 12:33] LABS: ABG Base Excess -2.2 MMOL/L (-2.5-2.5); ABG HCO3 22.6 MMOL/L (20-26); ABG PCO2 40.1 MM HG (35-48); ABG PH 7.365 (7.35-7.45); ABG TCO2 21.4 MMOL/L (23-27); Glucose Heart Surgery 214 MG/DL (74-106); Hematocrit Heart Surgery 24.9 PERCENT (37-47); Potassium Heart/CVR 4.8 MMOL/L (3.5-5.1)
[2017-10-30 12:40] LABS: Basophils % 0.3 % (0.0-0.8); Eosinophils # 0.2 10*3/uL (0.0-0.87); Eosinophils % 1.6 % (0.00-10.9); Hemoglobin 7.9 GM/DL (12.0-16.0); Immature Granulocytes % 0.8 %; Immature Granulocytes Absolute 0.09 #; Lymphocytes # 0.7 10*3/uL (1.4-4.0); Lymphocytes % 6.4 % (21.3-54.2); Mean Corpuscular HGB Conc 32.9 GM/DL (32-36); Mean Corpuscular Hemoglobin 29 PG (27-34); Mean Corpuscular Volume 87.9 FL (87-102); Mean Platelet Volume 9.9 FL (9.6-12.0); Monocytes # 0.8 10*3/uL (0.11-0.8); Monocytes % 6.9 % (1.7-12.7); Neutrophils # 9.5 10*3/uL (1.4-7.4); Platelet Count 298 T/CUMM (130-400); Red Blood Count 2.73 MC/CUMM (3.8-5.5); Red Cell Distribution Width 15.4 % (9.3-17.3); White Blood Count 11.3 T/CUMM (4-12)
[2017-10-30] MEDS ORDERED: INSULIN REGULAR 100 UNIT/ML IV ONE (13:00)
[2017-10-30 13:11] LABS: CKMB % 7.8 %
[2017-10-30 13:12] LABS: Albumin 2.8 G/DL (3.4-5.0); Bilirubin,Total 0.5 MG/DL (0.2-1.0); Osmolality,Calculated 288.4 MOS/KG (273-304); Potassium 4.9 MMOL/L (3.5-5.1); Total Protein 5.1 G/DL (6.4-8.3)
[2017-10-30 13:12] LABS: INR 1.1; PT Patient Result 11.7 SECS
[2017-10-30] MEDS: INSULIN REGULAR DRIP 100 ML IV SCH (13:15)
[2017-10-30] MEDS ORDERED: THROMBIN TOPICAL (RECOMBINANT) 5,000 UNIT VIAL TOP ONE (13:15)
[2017-10-30 13:18] LABS: Troponin I Only 3.1 NG/ML (0.00-0.045)
[2017-10-30] MEDS ORDERED: FUROSEMIDE 40 MG/4 ML VIAL IV ONE (14:43)
[2017-10-30 15:30] LABS: ABG Base Excess -2.3 MMOL/L (-2.5-2.5); ABG HCO3 22.5 MMOL/L (20-26); ABG PCO2 38.5 MM HG (35-48); ABG PH 7.377 (7.35-7.45); ABG TCO2 20.2 MMOL/L (23-27); Glucose Heart Surgery 221 MG/DL (74-106); Hematocrit Heart Surgery 35.4 PERCENT (37-47); Hemoglobin Heart Surgery 11.5 G/DL (12.0-16.0)
[2017-10-30] MEDS: POTASSIUM CHLORIDE RIDER 20 MEQ in PREMIX 1 EACH IV PRN (15:39)
[2017-10-30 17:14] LABS: ABG Base Excess -2.2 MMOL/L (-2.5-2.5); ABG HCO3 22.6 MMOL/L (20-26); ABG Oxygen Saturation 99.7 % (95-100); ABG PCO2 38.4 MM HG (35-48); ABG PH 7.379 (7.35-7.45); ABG TCO2 20.1 MMOL/L (23-27); Glucose Heart Surgery 132 MG/DL (74-106); Potassium Heart/CVR 4.7 MMOL/L (3.5-5.1)
[2017-10-30] MEDS: INSULIN LISPRO 100 UNIT/ML SUBCUT SCH ×2 (17:20→17:21)
[2017-10-30] MEDS: ALBUMIN 5% 12.5 GM in PREMIX 1 EACH IV PRN ×3 (17:45→23:56)
[2017-10-30] MEDS: MIDAZOLAM 2 MG/2 ML VIAL IV PRN ×2 (18:25→19:03)
[2017-10-30] MEDS: MORPHINE 2 MG/1 ML SYRINGE IV PRN (19:03)
[2017-10-30] MEDS: PROPOFOL 1,000 MG/100 ML BOTTLE IV SCH (20:01)
[2017-10-30 21:19] LABS: ABG Base Excess -3.5 MMOL/L (-2.5-2.5); ABG HCO3 21.5 MMOL/L (20-26); ABG Oxygen Saturation 99.1 % (95-100); ABG PH 7.384 (7.35-7.45); ABG TCO2 18.7 MMOL/L (23-27); Glucose Heart Surgery 142 MG/DL (74-106); Hematocrit Heart Surgery 35.2 PERCENT (37-47); Hemoglobin Heart Surgery 11.4 G/DL (12.0-16.0); Potassium Heart/CVR 4.5 MMOL/L (3.5-5.1)
[2017-10-30] MEDS: CHLORHEXIDINE 0.12% ORAL RINSE 60 ML BOTTLE SWISH/SPIT SCH ×2 (21:31→22:40)
[2017-10-30] MEDS: CEFUROXIME INJ 1,500 MG in SYRINGE 1 EACH IV SCH (21:31)
[2017-10-30 21:49] LABS: CKMB % 7.2 %
[2017-10-30 21:50] LABS: Troponin I Only 7.42 NG/ML (0.00-0.045)
[2017-10-30 22:20] LABS: ABG Base Excess -3.1 MMOL/L (-2.5-2.5); ABG HCO3 21.8 MMOL/L (20-26); ABG Oxygen Saturation 98.6 % (95-100); ABG PCO2 41.8 MM HG (35-48); ABG TCO2 20.4 MMOL/L (23-27); Glucose Heart Surgery 142 MG/DL (74-106); Hematocrit Heart Surgery 33.1 PERCENT (37-47); Hemoglobin Heart Surgery 10.7 G/DL (12.0-16.0); Potassium Heart/CVR 4.1 MMOL/L (3.5-5.1)
[2017-10-30] MEDS: PANTOPRAZOLE 40 MG TABLET PO SCH (22:39)
[2017-10-30] MEDS: metOLazone 5 MG TABLET PO SCH (22:39)
[2017-10-30] MEDS: CETIRIZINE 10 MG TABLET PO SCH (22:39)
[2017-10-30] MEDS: CHOLECALCIFEROL 5,000 UNIT TABLET PO SCH (22:39)
[2017-10-30] MEDS: FUROSEMIDE 40 MG/4 ML VIAL IV SCH (22:40)
[2017-10-30] MEDS: VENLAFAXINE XR 75 MG CAPSULE PO SCH (22:40)
[2017-10-30] MEDS: ASPIRIN 325 MG TABLET PO SCH (22:40)
[2017-10-30] MEDS: CIPROFLOXACIN/DEXAMETHASONE OTIC SUSP 7.5 ML BOTTLE LEFT EAR SCH (22:40)
[2017-10-30] MEDS: GABAPENTIN 300 MG CAPSULE PO SCH (22:40)
[2017-10-30] MEDS: MULTIVITAMIN (CENTRUM) TABLET PO SCH (22:40)
[2017-10-30] MEDS: SODIUM CHLORIDE 0.9% 1,000 ML IV SCH (22:41)
[2017-10-31] MEDS ORDERED: FUROSEMIDE 40 MG/4 ML VIAL IV ONE ×2 (00:05→06:19)
[2017-10-31 04:39] LABS: ABG Base Excess -5.3 MMOL/L (-2.5-2.5); ABG HCO3 20.7 MMOL/L (20-26); ABG Oxygen Saturation 98.1 % (95-100); Glucose Heart Surgery 182 MG/DL (74-106); Hemoglobin Heart Surgery 10.2 G/DL (12.0-16.0); Potassium Heart/CVR 4.6 MMOL/L (3.5-5.1)
[2017-10-31 04:43] LABS: Basophils % 0.2 % (0.0-0.8); Hematocrit 29.8 VOL% (35.7-47.0); Immature Granulocytes % 0.5 %; Immature Granulocytes Absolute 0.06 #; Lymphocytes # 0.6 10*3/uL (1.4-4.0); Lymphocytes % 4.6 % (21.3-54.2); Mean Corpuscular HGB Conc 33.2 GM/DL (32-36); Mean Corpuscular Hemoglobin 30 PG (27-34); Mean Corpuscular Volume 89.8 FL (87-102); Mean Platelet Volume 10.5 FL (9.6-12.0); Monocytes % 7.8 % (1.7-12.7); Neutrophils # 11.2 10*3/uL (1.4-7.4); Neutrophils % 86.9 % (38.7-73.9); Red Cell Distribution Width 15.3 % (9.3-17.3); White Blood Count 12.9 T/CUMM (4-12)
[2017-10-31 04:51] LABS: PT Patient Result 10.7 SECS; Partial Thromboplastin Time 28.6 SECS (0-40)
[2017-10-31] MEDS: PROPOFOL 1,000 MG/100 ML BOTTLE IV SCH ×4 (04:53→19:37)
[2017-10-31 04:54] LABS: Hemoglobin 9.9 GM/DL (12.0-16.0); Red Blood Count 3.32 MC/CUMM (3.8-5.5)
[2017-10-31 04:55] LABS: Platelet Count 160 T/CUMM (130-400)
[2017-10-31 05:19] LABS: Band Neutrophils 2 % (0-10); Lymphocytes 3 % (20-55); Segmented Neutrophils 84 % (50-85); Total Cells Counted 100
[2017-10-31 05:20] LABS: Giant Platelets Few; Hypochromasia 1+; Ovalocytes Slight; Platelet Estimate Normal
[2017-10-31 05:21] LABS: Albumin 3.2 G/DL (3.4-5.0); Bilirubin,Direct 0.11 MG/DL (0.0-0.20); Bilirubin,Total 0.4 MG/DL (0.2-1.0); Calcium 8.4 MG/DL (8.5-10.1); Magnesium 2.4 MG/DL (1.8-2.4); Potassium 4.6 MMOL/L (3.5-5.1); Total Protein 5.4 G/DL (6.4-8.3)
[2017-10-31 05:54] LABS: CKMB % 8.9 %
[2017-10-31 05:55] LABS: Troponin I Only 7.35 NG/ML (0.00-0.045)
[2017-10-31] MEDS: ALBUMIN 5% 12.5 GM in PREMIX 1 EACH IV PRN ×2 (06:05→06:21)
[2017-10-31] MEDS: FUROSEMIDE INJ 100 MG in SODIUM CHLORIDE 0.9% 90 ML IV SCH ×4 (08:30→22:10)
[2017-10-31] MEDS: CHLORHEXIDINE 0.12% ORAL RINSE 60 ML BOTTLE SWISH/SPIT SCH ×2 (09:07→21:45)
[2017-10-31] MEDS: MORPHINE 2 MG/1 ML SYRINGE IV PRN (09:49)
[2017-10-31] MEDS ORDERED: CEFUROXIME INJ 1,500 MG in SYRINGE 1 EACH IV SCH (10:00)
[2017-10-31] MEDS: CEFUROXIME INJ 1,500 MG in SYRINGE 1 EACH IV SCH (10:15)
[2017-10-31 11:38] LABS: ABG Base Excess -7.1 MMOL/L (-2.5-2.5); ABG HCO3 18.6 MMOL/L (20-26); ABG Oxygen Saturation 99.3 % (95-100); ABG PCO2 40.1 MM HG (35-48); ABG PH 7.285 (7.35-7.45); ABG TCO2 17.7 MMOL/L (23-27); Glucose Heart Surgery 194 MG/DL (74-106); Hematocrit Heart Surgery 28.3 PERCENT (37-47); Hemoglobin Heart Surgery 9.1 G/DL (12.0-16.0); Potassium Heart/CVR 4.9 MMOL/L (3.5-5.1)
[2017-10-31] MEDS ORDERED: CEFUROXIME 1,500 MG VIAL ONE (12:31)
[2017-10-31] MEDS ORDERED: SODIUM BICARBONATE 50 MEQ/50 ML SYRINGE IV ONE (12:31)
[2017-10-31] MEDS: INSULIN REGULAR 100 UNIT/ML SUBCUT SCH ×3 (12:34→21:45)
[2017-10-31] MEDS: INSULIN REGULAR DRIP 100 ML IV SCH (12:35)
[2017-10-31 16:15] LABS: ABG Base Excess -2.6 MMOL/L (-2.5-2.5); ABG HCO3 20.8 MMOL/L (20-26); ABG Oxygen Saturation 98.3 % (95-100); ABG PCO2 30.9 MM HG (35-48); ABG PH 7.446 (7.35-7.45); ABG PO2 135.8 MM HG (80-95); ABG TCO2 21.8 MMOL/L (23-27); Glucose Heart Surgery 180 MG/DL (74-106); Hemoglobin Heart Surgery 9.9 G/DL (12.0-16.0); Potassium Heart/CVR 4.1 MMOL/L (3.5-5.1)
[2017-10-31] MEDS: WARFARIN 5 MG TABLET PO SCH (18:02)
[2017-10-31 20:38] LABS: CKMB % 6.1 %
[2017-10-31 20:45] LABS: Troponin I Only 10.6 NG/ML (0.00-0.045)
[2017-10-31] MEDS: SODIUM CHLORIDE 0.45% 1,000 ML IV SCH ×2 (21:00)
[2017-11-01] MEDS: INSULIN REGULAR 100 UNIT/ML SUBCUT SCH ×7 (00:15→23:25)
[2017-11-01] MEDS: MORPHINE 2 MG/1 ML SYRINGE IV PRN ×5 (00:20→22:58)
[2017-11-01] MEDS: PROPOFOL 1,000 MG/100 ML BOTTLE IV SCH (00:48)
[2017-11-01] MEDS: FUROSEMIDE INJ 100 MG in SODIUM CHLORIDE 0.9% 90 ML IV SCH ×4 (01:39→22:57)
[2017-11-01 04:44] LABS: ABG Base Excess -3.8 MMOL/L (-2.5-2.5); ABG HCO3 21.3 MMOL/L (20-26); ABG Oxygen Saturation 99.4 % (95-100); ABG PCO2 37.7 MM HG (35-48); ABG PH 7.358 (7.35-7.45); Glucose Heart Surgery 226 MG/DL (74-106); Hematocrit Heart Surgery 35.5 PERCENT (37-47); Hemoglobin Heart Surgery 11.5 G/DL (12.0-16.0); Potassium Heart/CVR 3.7 MMOL/L (3.5-5.1)
[2017-11-01 05:19] LABS: PT Patient Result 10.5 SECS
[2017-11-01 05:29] LABS: Basophils # 0.1 10*3/uL (0.0-0.2); Basophils % 0.3 % (0.0-0.8); Eosinophils # 0.1 10*3/uL (0.0-0.87); Eosinophils % 0.3 % (0.00-10.9); Hematocrit 33.7 VOL% (35.7-47.0); Hemoglobin 11.3 GM/DL (12.0-16.0); Immature Granulocytes % 0.6 %; Lymphocytes # 1.2 10*3/uL (1.4-4.0); Lymphocytes % 7.9 % (21.3-54.2); Mean Corpuscular HGB Conc 33.5 GM/DL (32-36); Mean Corpuscular Hemoglobin 30 PG (27-34); Mean Corpuscular Volume 89.4 FL (87-102); Mean Platelet Volume 11.7 FL (9.6-12.0); Monocytes # 2.1 10*3/uL (0.11-0.8); Monocytes % 13.3 % (1.7-12.7); Neutrophils # 12.2 10*3/uL (1.4-7.4); Neutrophils % 77.6 % (38.7-73.9); Platelet Count 153 T/CUMM (130-400); Red Blood Count 3.77 MC/CUMM (3.8-5.5); Red Cell Distribution Width 15.7 % (9.3-17.3); White Blood Count 15.7 T/CUMM (4-12)
[2017-11-01 05:30] LABS: Albumin 3.3 G/DL (3.4-5.0); Bilirubin,Direct 0.17 MG/DL (0.0-0.20); Bilirubin,Total 0.4 MG/DL (0.2-1.0); Calcium 8.8 MG/DL (8.5-10.1); Magnesium 2.3 MG/DL (1.8-2.4); Osmolality,Calculated 298.1 MOS/KG (273-304); Potassium 3.8 MMOL/L (3.5-5.1); Total Protein 5.7 G/DL (6.4-8.3)
[2017-11-01] MEDS: SODIUM CHLORIDE 0.45% 1,000 ML IV SCH (06:25)
[2017-11-01 06:34] LABS: ABG Base Excess -3.5 MMOL/L (-2.5-2.5); ABG HCO3 21.5 MMOL/L (20-26); ABG Oxygen Saturation 99.3 % (95-100); ABG PCO2 36.7 MM HG (35-48); ABG PH 7.371 (7.35-7.45); ABG TCO2 19.3 MMOL/L (23-27); Glucose Heart Surgery 234 MG/DL (74-106); Hematocrit Heart Surgery 31.9 PERCENT (37-47); Hemoglobin Heart Surgery 10.3 G/DL (12.0-16.0); Potassium Heart/CVR 3.4 MMOL/L (3.5-5.1)
[2017-11-01 07:29] LABS: ABG Base Excess -2.3 MMOL/L (-2.5-2.5); ABG HCO3 22.5 MMOL/L (20-26); ABG Oxygen Saturation 98.5 % (95-100); ABG PCO2 41.2 MM HG (35-48); ABG PH 7.356 (7.35-7.45); Glucose Heart Surgery 197 MG/DL (74-106); Hematocrit Heart Surgery 31.7 PERCENT (37-47); Hemoglobin Heart Surgery 10.3 G/DL (12.0-16.0); Potassium Heart/CVR 3.3 MMOL/L (3.5-5.1)
[2017-11-01] MEDS: POTASSIUM CHLORIDE RIDER 20 MEQ in PREMIX 1 EACH IV PRN ×4 (07:57→17:59)
[2017-11-01] MEDS: CHLORHEXIDINE 0.12% ORAL RINSE 60 ML BOTTLE SWISH/SPIT SCH ×2 (08:41→21:01)
[2017-11-01] MEDS: metOLazone 5 MG TABLET PO SCH (09:51)
[2017-11-01] MEDS: SODIUM BICARB INJ 50 MEQ in SODIUM CHLORIDE 0.45% 1,000 ML IV SCH (14:09)
[2017-11-01] MEDS ORDERED: HEPARIN/NACL 0.9% 2 UNITS/ML 500 ML IV ONE (15:07)
[2017-11-01] MEDS: WARFARIN 5 MG TABLET PO SCH (17:19)
[2017-11-01] MEDS: INSULIN GLARGINE 100 UNIT/ML SUBCUT SCH (20:59)
[2017-11-01] MEDS: ACETAMINOPHEN 325 MG TABLET PO PRN (22:11)
[2017-11-02] MEDS: FUROSEMIDE INJ 100 MG in SODIUM CHLORIDE 0.9% 90 ML IV SCH ×2 (03:19→14:49)
[2017-11-02] MEDS: INSULIN REGULAR 100 UNIT/ML SUBCUT SCH ×5 (04:01→20:32)
[2017-11-02] MEDS: MORPHINE 2 MG/1 ML SYRINGE IV PRN ×4 (04:04→22:48)
[2017-11-02] MEDS ORDERED: AMIODARONE INJ 150 MG in DEXTROSE 5% 100 ML IV ONE (04:36)
[2017-11-02] MEDS ORDERED: DILTIAZEM 50 MG/10 ML VIAL IV ONE ×2 (04:37→04:39)
[2017-11-02] MEDS ORDERED: AMIODARONE 150 MG/3 ML VIAL ONE (04:37)
[2017-11-02] MEDS ORDERED: SODIUM CHLORIDE 0.9% 100 ML IV ONE (04:38)
[2017-11-02] MEDS ORDERED: AMIODARONE 450 MG/9 ML VIAL IV ONE (04:38)
[2017-11-02] MEDS ORDERED: DILTIAZEM 100 MG VIAL.ADD IV ONE (04:39)
[2017-11-02] MEDS: DILTIAZEM INJ 100 MG in SODIUM CHLORIDE 0.9% 100 ML IV SCH ×3 (04:53→18:58)
[2017-11-02] MEDS ORDERED: AMIODARONE INJ 450 MG in DEXTROSE 5% 241 ML IV SCH (05:00)
[2017-11-02 05:38] LABS: Albumin 3.2 G/DL (3.4-5.0); Bilirubin,Direct 0.33 MG/DL (0.0-0.20); Bilirubin,Total 0.8 MG/DL (0.2-1.0); Calcium 8.8 MG/DL (8.5-10.1); Magnesium 2.1 MG/DL (1.8-2.4); Osmolality,Calculated 298.7 MOS/KG (273-304); Potassium 3.5 MMOL/L (3.5-5.1); Total Protein 5.9 G/DL (6.4-8.3)
[2017-11-02 06:02] LABS: Basophils # 0.1 10*3/uL (0.0-0.2); Basophils % 0.4 % (0.0-0.8); Eosinophils % 0.1 % (0.00-10.9); Hemoglobin 9.6 GM/DL (12.0-16.0); Immature Granulocytes % 0.8 %; Immature Granulocytes Absolute 0.12 #; Lymphocytes % 6.1 % (21.3-54.2); Mean Corpuscular HGB Conc 33.1 GM/DL (32-36); Mean Corpuscular Hemoglobin 30 PG (27-34); Mean Corpuscular Volume 89.5 FL (87-102); Mean Platelet Volume 12.4 FL (9.6-12.0); Monocytes % 12.6 % (1.7-12.7); Neutrophils # 12.6 10*3/uL (1.4-7.4); Platelet Count 157 T/CUMM (130-400); Red Blood Count 3.24 MC/CUMM (3.8-5.5); Red Cell Distribution Width 15.1 % (9.3-17.3); White Blood Count 15.7 T/CUMM (4-12)
[2017-11-02] MEDS ORDERED: ALBUMIN 5% 12.5 GM/250 ML VIAL IV ONE (08:12)
[2017-11-02] MEDS: POTASSIUM CHLORIDE RIDER 20 MEQ in PREMIX 1 EACH IV PRN ×2 (08:26→17:22)
[2017-11-02] MEDS: ALBUMIN 5% 12.5 GM in PREMIX 1 EACH IV PRN ×2 (08:26→09:27)
[2017-11-02] MEDS: metOLazone 5 MG TABLET PO SCH (08:26)
[2017-11-02] MEDS: CHLORHEXIDINE 0.12% ORAL RINSE 60 ML BOTTLE SWISH/SPIT SCH ×2 (08:26→20:44)
[2017-11-02 08:47] LABS: INR 1.2; PT Patient Result 12.6 SECS
[2017-11-02] MEDS ORDERED: QUEtiapine 25 MG TABLET PO SCH (09:00)
[2017-11-02] MEDS: CLOPIDOGREL 75 MG TABLET PO SCH (09:49)
[2017-11-02] MEDS: METOPROLOL TARTRATE 25 MG TABLET PO SCH ×2 (10:43→20:34)
[2017-11-02] MEDS: AMIODARONE INJ 450 MG in DEXTROSE 5% 241 ML IV SCH (11:11)
[2017-11-02] MEDS ORDERED: ACETAMINOPHEN 325 MG TABLET PO PRN (12:28)
[2017-11-02] MEDS ORDERED: VANCOMYCIN INJ 1,000 MG in SODIUM CHLORIDE 0.9% 250 ML IV SCH (13:00)
[2017-11-02] MEDS: ACETAMINOPHEN 325 MG TABLET PO PRN (13:12)
[2017-11-02] MEDS: PIPERACILLIN/TAZOBACTAM 3,375 MG in SODIUM CHLORIDE 0.9% 100 ML IV SCH ×3 (14:24→20:44)
[2017-11-02] MEDS: SODIUM BICARB INJ 50 MEQ in SODIUM CHLORIDE 0.45% 1,000 ML IV SCH (14:41)
[2017-11-02] MEDS: VENLAFAXINE XR 75 MG CAPSULE PO SCH (15:14)
[2017-11-02] MEDS: WARFARIN 5 MG TABLET PO SCH (17:21)
[2017-11-02] MEDS: INSULIN GLARGINE 100 UNIT/ML SUBCUT SCH (20:43)
[2017-11-03] MEDS: INSULIN REGULAR 100 UNIT/ML SUBCUT SCH ×6 (00:21→20:43)
[2017-11-03] MEDS: DILTIAZEM INJ 100 MG in SODIUM CHLORIDE 0.9% 100 ML IV SCH ×2 (01:05→21:02)
[2017-11-03] MEDS: MORPHINE 2 MG/1 ML SYRINGE IV PRN (02:32)
[2017-11-03] MEDS: AMIODARONE INJ 450 MG in DEXTROSE 5% 241 ML IV SCH ×2 (03:06→21:03)
[2017-11-03 04:57] LABS: Basophils % 0.2 % (0.0-0.8); Eosinophils # 0.1 10*3/uL (0.0-0.87); Eosinophils % 0.4 % (0.00-10.9); Hemoglobin 10.1 GM/DL (12.0-16.0); Immature Granulocytes % 0.9 %; Immature Granulocytes Absolute 0.12 #; Lymphocytes # 0.9 10*3/uL (1.4-4.0); Lymphocytes % 6.5 % (21.3-54.2); Mean Corpuscular HGB Conc 32.6 GM/DL (32-36); Mean Corpuscular Hemoglobin 29 PG (27-34); Mean Corpuscular Volume 90.4 FL (87-102); Mean Platelet Volume 11.9 FL (9.6-12.0); Monocytes # 1.5 10*3/uL (0.11-0.8); Monocytes % 11.2 % (1.7-12.7); Neutrophils # 10.7 10*3/uL (1.4-7.4); Neutrophils % 80.8 % (38.7-73.9); Platelet Count 206 T/CUMM (130-400); Red Blood Count 3.43 MC/CUMM (3.8-5.5); Red Cell Distribution Width 15.2 % (9.3-17.3); White Blood Count 13.2 T/CUMM (4-12)
[2017-11-03 05:03] LABS: Calcium 8.9 MG/DL (8.5-10.1); Osmolality,Calculated 298.5 MOS/KG (273-304); Potassium 3.5 MMOL/L (3.5-5.1)
[2017-11-03 05:10] LABS: INR 1.7; PT Patient Result 17.8 SECS
[2017-11-03] MEDS: POTASSIUM CHLORIDE RIDER 20 MEQ in PREMIX 1 EACH IV PRN ×2 (05:30→07:15)
[2017-11-03] MEDS: FUROSEMIDE INJ 100 MG in SODIUM CHLORIDE 0.9% 90 ML IV SCH (05:31)
[2017-11-03] MEDS: METOPROLOL TARTRATE 25 MG TABLET PO SCH (09:10)
[2017-11-03] MEDS: CLOPIDOGREL 75 MG TABLET PO SCH (09:10)
[2017-11-03] MEDS: VENLAFAXINE XR 75 MG CAPSULE PO SCH (09:10)
[2017-11-03] MEDS: metOLazone 5 MG TABLET PO SCH (09:10)
[2017-11-03] MEDS: CHLORHEXIDINE 0.12% ORAL RINSE 60 ML BOTTLE SWISH/SPIT SCH ×2 (09:13→21:03)
[2017-11-03] MEDS ORDERED: ALBUTEROL/IPRATROPIUM 3 ML NEB RESP TX PRN (10:53)
[2017-11-03] MEDS: PIPERACILLIN/TAZOBACTAM 3,375 MG in SODIUM CHLORIDE 0.9% 100 ML IV SCH ×2 (11:00→21:45)
[2017-11-03] MEDS: FUROSEMIDE 40 MG/4 ML VIAL IV SCH ×2 (11:01→17:50)
[2017-11-03] MEDS: METOPROLOL SUCCINATE XL 25 MG TABLET PO SCH ×2 (11:28→20:44)
[2017-11-03] MEDS: MONTELUKAST 10 MG TABLET PO SCH (11:41)
[2017-11-03] MEDS: ALBUTEROL/IPRATROPIUM 3 ML NEB RESP TX SCH ×2 (12:13→19:54)
[2017-11-03] MEDS: DORNASE ALFA 2.5 MG/2.5 ML VIAL RESP TX SCH ×2 (12:19→19:58)
[2017-11-03] MEDS ORDERED: diphenhydrAMINE CAP 25 MG CAPSULE PO PRN (14:29)
[2017-11-03] MEDS ORDERED: BISACODYL 5 MG TABLET PO PRN (14:29)
[2017-11-03] MEDS ORDERED: guaiFENesin/DM ER 600-30 MG TABLET PO PRN (14:29)
[2017-11-03] MEDS ORDERED: ZALEPLON 5 MG CAPSULE PO PRN (14:29)
[2017-11-03 17:29] LABS: Apearance,Urine CLEAR (Clear); Bacteria,Urine Occasional /HPF (Few); Bilirubin,Urine Negative (Negative); Blood, Urine Moderate mg/dL (Negative); Glucose,Urine (UA) 50 mg/dL (Negative); Ketones,Urine Negative (Negative); Mucus,Urine Occasional /LPF (Occasional); Nitrite,Urine Negative (Negative); Protein,Urine 100 MG/DL; RBC,Urine 2 /HPF (0-4); Squamous Epithelial Cell,Urine Occasional /HPF (0-10); Urine Color Yellow (Yellow); Urine Specific Gravity 1.008 (1.001-1.035); Urine Urobilinogen < 2.0 EU/DL (0.2-1.0); WBC,Urine 1 /HPF (0-6)
[2017-11-03] MEDS: WARFARIN 5 MG TABLET PO SCH (17:51)
[2017-11-03] MEDS: INSULIN GLARGINE 100 UNIT/ML SUBCUT SCH (20:42)
[2017-11-03] MEDS: AMIODARONE 200 MG TABLET PO SCH (20:44)
[2017-11-03] MEDS: SODIUM BICARB INJ 50 MEQ in SODIUM CHLORIDE 0.45% 1,000 ML IV SCH (23:01)
[2017-11-04] MEDS: ALBUTEROL/IPRATROPIUM 3 ML NEB RESP TX SCH ×4 (00:29→19:07)
[2017-11-04] MEDS: INSULIN REGULAR 100 UNIT/ML SUBCUT SCH ×4 (01:01→12:39)
[2017-11-04 05:28] LABS: INR 2.4
[2017-11-04 05:29] LABS: PT Patient Result 24.9 SECS
[2017-11-04 05:33] LABS: Calcium 8.9 MG/DL (8.5-10.1); Potassium 3.5 MMOL/L (3.5-5.1)
[2017-11-04] MEDS: POTASSIUM CHLORIDE RIDER 20 MEQ in PREMIX 1 EACH IV PRN ×2 (06:55→10:12)
[2017-11-04] MEDS: DORNASE ALFA 2.5 MG/2.5 ML VIAL RESP TX SCH ×2 (07:55→20:08)
[2017-11-04] MEDS ORDERED: PANTOPRAZOLE 40 MG TABLET PO SCH (09:00)
[2017-11-04] MEDS: VENLAFAXINE XR 75 MG CAPSULE PO SCH (09:58)
[2017-11-04] MEDS: MONTELUKAST 10 MG TABLET PO SCH (09:59)
[2017-11-04] MEDS: metOLazone 5 MG TABLET PO SCH (10:01)
[2017-11-04] MEDS: METOPROLOL SUCCINATE XL 25 MG TABLET PO SCH ×2 (10:01→21:28)
[2017-11-04] MEDS: AMIODARONE 200 MG TABLET PO SCH ×2 (10:01→21:29)
[2017-11-04] MEDS: CLOPIDOGREL 75 MG TABLET PO SCH (10:01)
[2017-11-04] MEDS: FUROSEMIDE 40 MG/4 ML VIAL IV SCH (10:03)
[2017-11-04] MEDS: CHLORHEXIDINE 0.12% ORAL RINSE 60 ML BOTTLE SWISH/SPIT SCH ×3 (10:22→21:29)
[2017-11-04] MEDS: AMIODARONE INJ 450 MG in DEXTROSE 5% 241 ML IV SCH (10:22)
[2017-11-04] MEDS: PIPERACILLIN/TAZOBACTAM 3,375 MG in SODIUM CHLORIDE 0.9% 100 ML IV SCH ×2 (10:57→22:58)
[2017-11-04] MEDS ORDERED: ALUMINUM/MAGNES/SIMETH MAX STR 30 ML UDCUP PO PRN (13:34)
[2017-11-04] MEDS ORDERED: oxyCODONE/ACETAMINOPHEN 5-325 MG TABLET PO PRN (13:34)
[2017-11-04] MEDS ORDERED: MAGNESIUM SULF RIDER 4 GM in PREMIX 1 EACH IV PRN (13:34)
[2017-11-04] MEDS ORDERED: MAGNESIUM HYDROXIDE SUSP 30 ML UDCUP PO PRN (13:34)
[2017-11-04] MEDS ORDERED: DEXTROSE 50% 25 GM/50 ML VIAL IV PRN ×2 (13:34)
[2017-11-04] MEDS ORDERED: GLUCAGON 1 MG VIAL IM PRN ×2 (13:34)
[2017-11-04] MEDS ORDERED: ACETAMINOPHEN 325 MG TABLET PO PRN (13:34)
[2017-11-04] MEDS ORDERED: SODIUM CHLOR 0.45% KCL 20 MEQ 20 MEQ/1,000 ML BAG IV SCH (13:34)
[2017-11-04] MEDS ORDERED: MAGNESIUM SULF RIDER 2 GM in PREMIX 1 EACH IV PRN (13:34)
[2017-11-04] MEDS: PANTOPRAZOLE 40 MG TABLET PO SCH (15:16)
[2017-11-04] MEDS: SODIUM BICARB INJ 50 MEQ in SODIUM CHLORIDE 0.45% 1,000 ML IV SCH (15:19)
[2017-11-04] MEDS: DOCUSATE SODIUM 100 MG CAPSULE PO SCH (16:13)
[2017-11-04] MEDS: ASPIRIN EC 325 MG TABLET PO SCH (16:54)
[2017-11-04] MEDS: FERROUS SULFATE 325 MG TABLET PO SCH (16:55)
[2017-11-04] MEDS ORDERED: WARFARIN 5 MG TABLET PO SCH (18:00)
[2017-11-04] MEDS: INSULIN GLARGINE 100 UNIT/ML SUBCUT SCH (21:28)
[2017-11-04] MEDS: ZALEPLON 5 MG CAPSULE PO PRN (21:29)
[2017-11-05] MEDS: ALBUTEROL/IPRATROPIUM 3 ML NEB RESP TX SCH ×4 (00:48→19:35)
[2017-11-05 05:38] LABS: Basophils # 0.1 10*3/uL (0.0-0.2); Basophils % 0.7 % (0.0-0.8); Eosinophils # 0.4 10*3/uL (0.0-0.87); Eosinophils % 4.2 % (0.00-10.9); Hematocrit 28.6 VOL% (35.7-47.0); Hemoglobin 9.4 GM/DL (12.0-16.0); Immature Granulocytes % 3.3 %; Immature Granulocytes Absolute 0.33 #; Lymphocytes # 1.1 10*3/uL (1.4-4.0); Lymphocytes % 11.3 % (21.3-54.2); Mean Corpuscular HGB Conc 32.9 GM/DL (32-36); Mean Corpuscular Hemoglobin 29 PG (27-34); Mean Corpuscular Volume 88.3 FL (87-102); Mean Platelet Volume 10.5 FL (9.6-12.0); Monocytes # 1.1 10*3/uL (0.11-0.8); Monocytes % 11.1 % (1.7-12.7); NRBC # 0.02 10*3/uL; Neutrophils % 69.4 % (38.7-73.9); Platelet Count 380 T/CUMM (130-400); Red Blood Count 3.24 MC/CUMM (3.8-5.5); Red Cell Distribution Width 15.3 % (9.3-17.3); White Blood Count 10.1 T/CUMM (4-12)
[2017-11-05 05:47] LABS: INR 4.1
[2017-11-05 05:48] LABS: PT Patient Result 40.7 SECS
[2017-11-05 05:57] LABS: Hypochromasia 1+; Microcytosis Slight; Platelet Estimate Normal
[2017-11-05] MEDS ORDERED: FUROSEMIDE 40 MG/4 ML VIAL IV ONE (06:00)
[2017-11-05 06:22] LABS: Alanine Aminotransferase 26 U/L (13-56); Albumin 3.1 G/DL (3.4-5.0); Alkaline Phosphatase 111 U/L (45-117); Aspartate Amino Transferase 26 U/L (0-37); Bilirubin,Indirect 0.5 MG/DL (0.0-1.0); Blood Urea Nitrogen 62 MG/DL (7-18); Calcium 8.8 MG/DL (8.5-10.1); Glucose 307 MG/DL (74-106); Magnesium 2.1 MG/DL (1.8-2.4); Osmolality,Calculated 297.2 MOS/KG (273-304); Potassium 4.2 MMOL/L (3.5-5.1); Sodium 134 MMOL/L (136-145); Total Protein 6.2 G/DL (6.4-8.3)
[2017-11-05] MEDS: DORNASE ALFA 2.5 MG/2.5 ML VIAL RESP TX SCH ×2 (09:39→19:35)
[2017-11-05] MEDS: DOCUSATE SODIUM 100 MG CAPSULE PO SCH (10:06)
[2017-11-05] MEDS: CLOPIDOGREL 75 MG TABLET PO SCH (10:06)
[2017-11-05] MEDS: ASPIRIN EC 325 MG TABLET PO SCH (10:06)
[2017-11-05] MEDS: FERROUS SULFATE 325 MG TABLET PO SCH (10:06)
[2017-11-05] MEDS: AMIODARONE 200 MG TABLET PO SCH ×2 (10:06→21:17)
[2017-11-05] MEDS: METOPROLOL SUCCINATE XL 25 MG TABLET PO SCH ×2 (10:06→21:17)
[2017-11-05] MEDS: VENLAFAXINE XR 75 MG CAPSULE PO SCH (10:07)
[2017-11-05] MEDS: FUROSEMIDE 40 MG/4 ML VIAL IV SCH (10:07)
[2017-11-05] MEDS: MONTELUKAST 10 MG TABLET PO SCH (10:07)
[2017-11-05] MEDS: PANTOPRAZOLE 40 MG TABLET PO SCH (10:07)
[2017-11-05] MEDS: PIPERACILLIN/TAZOBACTAM 3,375 MG in SODIUM CHLORIDE 0.9% 100 ML IV SCH ×2 (10:14→21:17)
[2017-11-05] MEDS: CHLORHEXIDINE 0.12% ORAL RINSE 60 ML BOTTLE SWISH/SPIT SCH ×2 (10:14→21:17)
[2017-11-05] MEDS: ONDANSETRON 4 MG/2 ML VIAL IV PRN (11:42)
[2017-11-05] MEDS ORDERED: GLUCAGON 1 MG VIAL IM PRN (12:24)
[2017-11-05] MEDS ORDERED: DEXTROSE 50% 25 GM/50 ML VIAL IV PRN (12:24)
[2017-11-05] MEDS: INSULIN REGULAR 100 UNIT/ML SUBCUT SCH ×3 (13:54→21:17)
[2017-11-05] MEDS: HYDROCORTISONE 1% CREAM 28 GM TUBE TOP PRN (13:57)
[2017-11-05] MEDS: amLODIPine 5 MG TABLET PO SCH (18:10)
[2017-11-05] MEDS: INSULIN GLARGINE 100 UNIT/ML SUBCUT SCH (21:17)
[2017-11-06] MEDS: ALBUTEROL/IPRATROPIUM 3 ML NEB RESP TX SCH ×4 (00:39→21:03)
[2017-11-06] MEDS ORDERED: DILTIAZEM 50 MG/10 ML VIAL IV ONE (04:20)
[2017-11-06] MEDS ORDERED: AMIODARONE INJ 50 MG in DEXTROSE 5% 100 ML IV ONE (04:21)
[2017-11-06] MEDS ORDERED: AMIODARONE 150 MG/3 ML VIAL ONE ×2 (04:25→04:26)
[2017-11-06] MEDS ORDERED: DILTIAZEM 100 MG VIAL.ADD IV ONE ×2 (04:25→04:26)
[2017-11-06] MEDS ORDERED: SODIUM CHLORIDE 0.9% 100 ML IV ONE (04:26)
[2017-11-06] MEDS ORDERED: DILTIAZEM INJ 100 MG in SODIUM CHLORIDE 0.9% 100 ML IV SCH (04:30)
[2017-11-06] MEDS ORDERED: AMIODARONE 450 MG/9 ML VIAL IV ONE (04:41)
[2017-11-06] MEDS: AMIODARONE INJ 450 MG in DEXTROSE 5% 241 ML IV SCH ×2 (04:47→20:16)
[2017-11-06 05:00] LABS: Basophils # 0.1 10*3/uL (0.0-0.2); Basophils % 0.6 % (0.0-0.8); Eosinophils # 0.4 10*3/uL (0.0-0.87); Eosinophils % 2.7 % (0.00-10.9); Hematocrit 30.9 VOL% (35.7-47.0); Hemoglobin 10.2 GM/DL (12.0-16.0); Immature Granulocytes % 2.5 %; Immature Granulocytes Absolute 0.37 #; Lymphocytes # 2.1 10*3/uL (1.4-4.0); Lymphocytes % 14.7 % (21.3-54.2); Mean Corpuscular Hemoglobin 29 PG (27-34); Mean Corpuscular Volume 88.3 FL (87-102); Mean Platelet Volume 10.1 FL (9.6-12.0); Monocytes # 1.6 10*3/uL (0.11-0.8); NRBC # 0.02 10*3/uL; Neutrophils # 9.9 10*3/uL (1.4-7.4); Neutrophils % 68.5 % (38.7-73.9); Platelet Count 542 T/CUMM (130-400); Red Cell Distribution Width 15.2 % (9.3-17.3); White Blood Count 14.5 T/CUMM (4-12)
[2017-11-06 05:29] LABS: PT Patient Result 55.1 SECS
[2017-11-06 05:30] LABS: INR 5.6
[2017-11-06 05:38] LABS: Alanine Aminotransferase 26 U/L (13-56); Albumin 3.4 G/DL (3.4-5.0); Alkaline Phosphatase 117 U/L (45-117); Aspartate Amino Transferase 24 U/L (0-37); Bilirubin,Indirect 0.8 MG/DL (0.0-1.0); Blood Urea Nitrogen 62 MG/DL (7-18); Calcium 9.2 MG/DL (8.5-10.1); Magnesium 2.1 MG/DL (1.8-2.4); Osmolality,Calculated 286.8 MOS/KG (273-304); Potassium 3.6 MMOL/L (3.5-5.1); Sodium 137 MMOL/L (136-145); Total Protein 6.5 G/DL (6.4-8.3)
[2017-11-06 05:42] LABS: Glucose 29 MG/DL (74-106)
[2017-11-06 06:19] LABS: Band Neutrophils 1 % (0-10); Eosinophils 4 % (0-10); Hypochromasia 1+; Lymphocytes 16 % (20-55); Macrocytosis 1+; Myelocytes 1 %; Platelet Estimate Increased; Polychromasia Slight; Segmented Neutrophils 74 % (50-85); Total Cells Counted 100
[2017-11-06] MEDS: DORNASE ALFA 2.5 MG/2.5 ML VIAL RESP TX SCH ×2 (07:41→21:04)
[2017-11-06] MEDS: INSULIN REGULAR 100 UNIT/ML SUBCUT SCH ×4 (08:29→21:20)
[2017-11-06] MEDS: VENLAFAXINE XR 75 MG CAPSULE PO SCH (09:10)
[2017-11-06] MEDS: DOCUSATE SODIUM 100 MG CAPSULE PO SCH (09:11)
[2017-11-06] MEDS: CLOPIDOGREL 75 MG TABLET PO SCH (09:11)
[2017-11-06] MEDS: FERROUS SULFATE 325 MG TABLET PO SCH (09:11)
[2017-11-06] MEDS: METOPROLOL SUCCINATE XL 25 MG TABLET PO SCH (09:11)
[2017-11-06] MEDS: AMIODARONE 200 MG TABLET PO SCH ×2 (09:11→21:19)
[2017-11-06] MEDS: MONTELUKAST 10 MG TABLET PO SCH (09:11)
[2017-11-06] MEDS: FUROSEMIDE 40 MG/4 ML VIAL IV SCH (09:15)
[2017-11-06] MEDS: HYDROCORTISONE 1% CREAM 28 GM TUBE TOP PRN (09:24)
[2017-11-06] MEDS: CHLORHEXIDINE 0.12% ORAL RINSE 60 ML BOTTLE SWISH/SPIT SCH ×2 (09:24→21:21)
[2017-11-06] MEDS: ASPIRIN EC 325 MG TABLET PO SCH (09:24)
[2017-11-06] MEDS: amLODIPine 5 MG TABLET PO SCH (09:24)
[2017-11-06] MEDS: PANTOPRAZOLE 40 MG TABLET PO SCH (09:25)
[2017-11-06] MEDS: PIPERACILLIN/TAZOBACTAM 3,375 MG in SODIUM CHLORIDE 0.9% 100 ML IV SCH ×3 (09:27→22:46)
[2017-11-06] MEDS: METOPROLOL SUCCINATE XL 50 MG TABLET PO SCH ×2 (11:15→21:19)
[2017-11-06] MEDS: INSULIN GLARGINE 100 UNIT/ML SUBCUT SCH (21:20)
[2017-11-06] MEDS: ONDANSETRON 4 MG/2 ML VIAL IV PRN (21:34)
[2017-11-07] MEDS: ALBUTEROL/IPRATROPIUM 3 ML NEB RESP TX SCH ×4 (01:06→19:24)
[2017-11-07 05:14] LABS: INR 3.8
[2017-11-07 06:00] LABS: PT Patient Result 38.6 SECS
[2017-11-07] MEDS: DORNASE ALFA 2.5 MG/2.5 ML VIAL RESP TX SCH ×2 (07:13→19:24)
[2017-11-07] MEDS: amLODIPine 5 MG TABLET PO SCH (09:03)
[2017-11-07] MEDS: METOPROLOL SUCCINATE XL 50 MG TABLET PO SCH ×2 (09:03→20:56)
[2017-11-07] MEDS: AMIODARONE 200 MG TABLET PO SCH ×2 (09:03→20:56)
[2017-11-07] MEDS: VENLAFAXINE XR 75 MG CAPSULE PO SCH (09:03)
[2017-11-07] MEDS: MONTELUKAST 10 MG TABLET PO SCH (09:03)
[2017-11-07] MEDS: DOCUSATE SODIUM 100 MG CAPSULE PO SCH (09:03)
[2017-11-07] MEDS: CLOPIDOGREL 75 MG TABLET PO SCH (09:03)
[2017-11-07] MEDS: PANTOPRAZOLE 40 MG TABLET PO SCH (09:04)
[2017-11-07] MEDS: FUROSEMIDE 40 MG/4 ML VIAL IV SCH (09:04)
[2017-11-07] MEDS: INSULIN REGULAR 100 UNIT/ML SUBCUT SCH ×4 (09:04→20:56)
[2017-11-07] MEDS: FERROUS SULFATE 325 MG TABLET PO SCH (09:04)
[2017-11-07] MEDS: CHLORHEXIDINE 0.12% ORAL RINSE 60 ML BOTTLE SWISH/SPIT SCH ×2 (09:04→20:55)
[2017-11-07] MEDS: ONDANSETRON 4 MG/2 ML VIAL IV PRN ×2 (09:30→20:17)
[2017-11-07] MEDS: PIPERACILLIN/TAZOBACTAM 3,375 MG in SODIUM CHLORIDE 0.9% 100 ML IV SCH ×2 (11:11→21:38)
[2017-11-07] MEDS ORDERED: WARFARIN 2.5 MG TABLET PO SCH (18:00)
[2017-11-07] MEDS: INSULIN GLARGINE 100 UNIT/ML SUBCUT SCH (20:56)
[2017-11-07] MEDS: HYDROCORTISONE 1% CREAM 28 GM TUBE TOP PRN (21:38)
[2017-11-08] MEDS: ALBUTEROL/IPRATROPIUM 3 ML NEB RESP TX SCH ×4 (00:30→20:49)
[2017-11-08 06:33] LABS: Basophils # 0.1 10*3/uL (0.0-0.2); Basophils % 0.4 % (0.0-0.8); Eosinophils # 0.2 10*3/uL (0.0-0.87); Eosinophils % 1.3 % (0.00-10.9); Hematocrit 28.7 VOL% (35.7-47.0); Hemoglobin 9.5 GM/DL (12.0-16.0); Immature Granulocytes % 4.5 %; Immature Granulocytes Absolute 0.75 #; Lymphocytes # 1.8 10*3/uL (1.4-4.0); Lymphocytes % 10.7 % (21.3-54.2); Mean Corpuscular HGB Conc 33.1 GM/DL (32-36); Mean Corpuscular Hemoglobin 29 PG (27-34); Mean Corpuscular Volume 88.3 FL (87-102); Mean Platelet Volume 10.2 FL (9.6-12.0); Monocytes # 1.7 10*3/uL (0.11-0.8); Monocytes % 10.4 % (1.7-12.7); Neutrophils # 12.1 10*3/uL (1.4-7.4); Neutrophils % 72.7 % (38.7-73.9); Platelet Count 602 T/CUMM (130-400); Red Blood Count 3.25 MC/CUMM (3.8-5.5); White Blood Count 16.6 T/CUMM (4-12)
[2017-11-08 06:42] LABS: INR 4.9
[2017-11-08 06:43] LABS: PT Patient Result 48.8 SECS
[2017-11-08 07:02] LABS: Band Neutrophils 1 % (0-10); Lymphocytes 13 % (20-55); Segmented Neutrophils 80 % (50-85); Total Cells Counted 100
[2017-11-08 07:03] LABS: Giant Platelets Few; Hypochromasia 1+; Macrocytosis Slight; Platelet Estimate Increased; Polychromasia Slight
[2017-11-08 07:08] LABS: Alanine Aminotransferase 19 U/L (13-56); Albumin 3.1 G/DL (3.4-5.0); Alkaline Phosphatase 107 U/L (45-117); Aspartate Amino Transferase 17 U/L (0-37); Bilirubin,Indirect 0.5 MG/DL (0.0-1.0); Blood Urea Nitrogen 78 MG/DL (7-18); Calcium 8.9 MG/DL (8.5-10.1); Glucose 173 MG/DL (74-106); Magnesium 2.5 MG/DL (1.8-2.4); Osmolality,Calculated 299.8 MOS/KG (273-304); Potassium 3.5 MMOL/L (3.5-5.1); Sodium 137 MMOL/L (136-145); Total Protein 6.3 G/DL (6.4-8.3)
[2017-11-08] MEDS: DORNASE ALFA 2.5 MG/2.5 ML VIAL RESP TX SCH ×2 (07:20→20:55)
[2017-11-08] MEDS: INSULIN REGULAR 100 UNIT/ML SUBCUT SCH ×4 (09:44→22:52)
[2017-11-08] MEDS: CLOPIDOGREL 75 MG TABLET PO SCH (09:45)
[2017-11-08] MEDS: amLODIPine 5 MG TABLET PO SCH ×3 (09:45→22:09)
[2017-11-08] MEDS: VENLAFAXINE XR 75 MG CAPSULE PO SCH ×2 (09:45→13:36)
[2017-11-08] MEDS: MONTELUKAST 10 MG TABLET PO SCH ×2 (09:45→13:37)
[2017-11-08] MEDS: PANTOPRAZOLE 40 MG TABLET PO SCH ×2 (09:45→13:37)
[2017-11-08] MEDS: METOPROLOL SUCCINATE XL 50 MG TABLET PO SCH ×3 (09:45→22:09)
[2017-11-08] MEDS: DOCUSATE SODIUM 100 MG CAPSULE PO SCH ×2 (09:45→13:36)
[2017-11-08] MEDS: AMIODARONE 200 MG TABLET PO SCH (09:45)
[2017-11-08] MEDS: CHLORHEXIDINE 0.12% ORAL RINSE 60 ML BOTTLE SWISH/SPIT SCH ×2 (09:46→22:09)
[2017-11-08] MEDS: SODIUM CHLORIDE 0.9% 1,000 ML IV SCH (10:43)
[2017-11-08] MEDS ORDERED: traMADol 50 MG TABLET PO PRN (17:35)
[2017-11-08] MEDS: METOCLOPRAMIDE 10 MG/2 ML VIAL IV SCH (18:02)
[2017-11-08] MEDS: ONDANSETRON 4 MG/2 ML VIAL IV PRN (20:42)
[2017-11-08] MEDS: HYDROCORTISONE 1% CREAM 28 GM TUBE TOP PRN (22:16)
[2017-11-08] MEDS: INSULIN GLARGINE 100 UNIT/ML SUBCUT SCH (22:52)
[2017-11-09] MEDS: ALBUTEROL/IPRATROPIUM 3 ML NEB RESP TX SCH ×4 (00:53→20:02)
[2017-11-09] MEDS: METOCLOPRAMIDE 10 MG/2 ML VIAL IV SCH ×4 (01:35→17:44)
[2017-11-09] MEDS: SODIUM CHLORIDE 0.9% 1,000 ML IV SCH ×2 (05:44→06:29)
[2017-11-09 06:00] LABS: Basophils # 0.1 10*3/uL (0.0-0.2); Basophils % 0.4 % (0.0-0.8); Eosinophils # 0.2 10*3/uL (0.0-0.87); Eosinophils % 0.8 % (0.00-10.9); Hematocrit 28.3 VOL% (35.7-47.0); Hemoglobin 9.5 GM/DL (12.0-16.0); Immature Granulocytes % 3.7 %; Immature Granulocytes Absolute 0.67 #; Lymphocytes % 10.9 % (21.3-54.2); Mean Corpuscular HGB Conc 33.6 GM/DL (32-36); Mean Corpuscular Hemoglobin 30 PG (27-34); Mean Corpuscular Volume 88.2 FL (87-102); Mean Platelet Volume 9.8 FL (9.6-12.0); Monocytes # 1.8 10*3/uL (0.11-0.8); Monocytes % 10.3 % (1.7-12.7); Neutrophils # 13.2 10*3/uL (1.4-7.4); Neutrophils % 73.9 % (38.7-73.9); Platelet Count 602 T/CUMM (130-400); Red Blood Count 3.21 MC/CUMM (3.8-5.5); Red Cell Distribution Width 15.9 % (9.3-17.3); White Blood Count 17.9 T/CUMM (4-12)
[2017-11-09 06:26] LABS: Giant Platelets Few; Hypochromasia 1+; Lymphocytes 8 % (20-55); Magnesium 2.5 MG/DL (1.8-2.4); Osmolality,Calculated 295.8 MOS/KG (273-304); Ovalocytes Slight; Platelet Estimate Increased; Potassium 3.2 MMOL/L (3.5-5.1); Segmented Neutrophils 79 % (50-85); Total Cells Counted 100
[2017-11-09 06:27] LABS: PT Patient Result 61.1 SECS
[2017-11-09 06:28] LABS: INR 6.2
[2017-11-09 06:29] LABS: Microcytosis Slight
[2017-11-09] MEDS: ONDANSETRON 4 MG/2 ML VIAL IV PRN ×2 (06:33→07:09)
[2017-11-09] MEDS: POTASSIUM CHLORIDE 20 MEQ TABLET PO PRN ×4 (06:33→12:08)
[2017-11-09 07:12] LABS: Alanine Aminotransferase 16 U/L (13-56); Albumin 3.4 G/DL (3.4-5.0); Alkaline Phosphatase 108 U/L (45-117); Aspartate Amino Transferase 15 U/L (0-37); Bilirubin,Indirect 0.6 MG/DL (0.0-1.0); Blood Urea Nitrogen 74 MG/DL (7-18); Calcium 9.1 MG/DL (8.5-10.1); Glucose 100 MG/DL (74-106); Magnesium 2.5 MG/DL (1.8-2.4); Osmolality,Calculated 294.8 MOS/KG (273-304); Potassium 3.1 MMOL/L (3.5-5.1); Sodium 137 MMOL/L (136-145); Total Protein 6.6 G/DL (6.4-8.3)
[2017-11-09] MEDS: DORNASE ALFA 2.5 MG/2.5 ML VIAL RESP TX SCH ×2 (07:21→20:02)
[2017-11-09] MEDS: INSULIN REGULAR 100 UNIT/ML SUBCUT SCH ×4 (08:52→21:06)
[2017-11-09] MEDS: METOPROLOL SUCCINATE XL 50 MG TABLET PO SCH ×2 (09:36→21:08)
[2017-11-09] MEDS: CLOPIDOGREL 75 MG TABLET PO SCH (09:36)
[2017-11-09] MEDS: amLODIPine 5 MG TABLET PO SCH ×2 (09:36→21:08)
[2017-11-09] MEDS: VENLAFAXINE XR 75 MG CAPSULE PO SCH (09:36)
[2017-11-09] MEDS: MONTELUKAST 10 MG TABLET PO SCH (09:36)
[2017-11-09] MEDS: PANTOPRAZOLE 40 MG TABLET PO SCH (09:36)
[2017-11-09] MEDS: AMIODARONE 200 MG TABLET PO SCH (09:36)
[2017-11-09] MEDS: DOCUSATE SODIUM 100 MG CAPSULE PO SCH (09:38)
[2017-11-09] MEDS: CHLORHEXIDINE 0.12% ORAL RINSE 60 ML BOTTLE SWISH/SPIT SCH ×2 (09:38→21:10)
[2017-11-09] MEDS ORDERED: PHYTONADIONE 5 MG TABLET PO ONE (17:00)
[2017-11-09] MEDS: OXYMETAZOLINE 0.05% NASAL SPRAY 15 ML BOTTLE BOTH NARES PRN (17:10)
[2017-11-09] MEDS ORDERED: COCAINE SUBSTITUTE 30 ML BOTTLE TOP ONE ×2 (18:51→18:59)
[2017-11-09] MEDS ORDERED: COCAINE TOP ONE (19:22)
[2017-11-09] MEDS ORDERED: TISSUE ADHESIVE 1 EACH APPLICATOR TOP ONE (19:26)
[2017-11-09] MEDS ORDERED: SILVER NITRATE STICK 1 EACH TOP ONE (19:38)
[2017-11-09] MEDS: ZALEPLON 5 MG CAPSULE PO PRN (21:07)
[2017-11-09] MEDS: INSULIN GLARGINE 100 UNIT/ML SUBCUT SCH (21:07)
[2017-11-09] MEDS: BACITRACIN OINT 0.9 GM PACK TOP SCH (21:09)
[2017-11-09] MEDS: COCAINE TOP ONE ×2 (21:09→21:16)
[2017-11-09] MEDS: HYDROCORTISONE 1% CREAM 28 GM TUBE TOP PRN (21:10)
[2017-11-09] MEDS: SODIUM CHLORIDE 0.65% NASAL SPRAY 45 ML BOTTLE BOTH NARES SCH (21:10)
[2017-11-10] MEDS: METOCLOPRAMIDE 10 MG/2 ML VIAL IV SCH ×4 (00:16→17:44)
[2017-11-10] MEDS: ALBUTEROL/IPRATROPIUM 3 ML NEB RESP TX SCH ×4 (00:34→19:51)
[2017-11-10] MEDS: SODIUM CHLORIDE 0.9% 1,000 ML IV SCH ×2 (04:15→21:00)
[2017-11-10 04:55] LABS: Basophils # 0.1 10*3/uL (0.0-0.2); Basophils % 0.4 % (0.0-0.8); Eosinophils # 0.2 10*3/uL (0.0-0.87); Eosinophils % 0.9 % (0.00-10.9); Hematocrit 26.4 VOL% (35.7-47.0); Hemoglobin 8.7 GM/DL (12.0-16.0); Immature Granulocytes % 2.9 %; Immature Granulocytes Absolute 0.46 #; Lymphocytes # 1.8 10*3/uL (1.4-4.0); Lymphocytes % 11.1 % (21.3-54.2); Mean Corpuscular Hemoglobin 30 PG (27-34); Mean Corpuscular Volume 89.5 FL (87-102); Mean Platelet Volume 9.9 FL (9.6-12.0); Monocytes # 1.9 10*3/uL (0.11-0.8); Monocytes % 11.8 % (1.7-12.7); Neutrophils # 11.7 10*3/uL (1.4-7.4); Neutrophils % 72.9 % (38.7-73.9); Platelet Count 563 T/CUMM (130-400); Red Blood Count 2.95 MC/CUMM (3.8-5.5); Red Cell Distribution Width 15.9 % (9.3-17.3); White Blood Count 16.1 T/CUMM (4-12)
[2017-11-10 04:58] LABS: INR 1.9; PT Patient Result 19.8 SECS
[2017-11-10 06:26] LABS: Potassium 3.7 MMOL/L (3.5-5.1)
[2017-11-10 06:28] LABS: Calcium 8.6 MG/DL (8.5-10.1)
[2017-11-10 06:29] LABS: Magnesium 2.6 MG/DL (1.8-2.4); Osmolality,Calculated 292.7 MOS/KG (273-304)
[2017-11-10] MEDS: DORNASE ALFA 2.5 MG/2.5 ML VIAL RESP TX SCH ×2 (07:20→19:51)
[2017-11-10 07:34] LABS: Calcium 8.5 MG/DL (8.5-10.1); Osmolality,Calculated 291.8 MOS/KG (273-304); Potassium 3.6 MMOL/L (3.5-5.1)
[2017-11-10] MEDS: INSULIN REGULAR 100 UNIT/ML SUBCUT SCH ×4 (08:28→21:22)
[2017-11-10] MEDS: DOCUSATE SODIUM 100 MG CAPSULE PO SCH ×2 (09:13→12:59)
[2017-11-10] MEDS: PANTOPRAZOLE 40 MG TABLET PO SCH ×2 (09:13→12:59)
[2017-11-10] MEDS: CLOPIDOGREL 75 MG TABLET PO SCH ×2 (09:13→13:03)
[2017-11-10] MEDS: VENLAFAXINE XR 75 MG CAPSULE PO SCH ×2 (09:13→13:00)
[2017-11-10] MEDS: HYDROCORTISONE 1% CREAM 28 GM TUBE TOP PRN (09:14)
[2017-11-10] MEDS: CHLORHEXIDINE 0.12% ORAL RINSE 60 ML BOTTLE SWISH/SPIT SCH ×2 (09:14→13:00)
[2017-11-10] MEDS: amLODIPine 5 MG TABLET PO SCH ×3 (09:14→21:22)
[2017-11-10] MEDS: MONTELUKAST 10 MG TABLET PO SCH ×2 (09:14→13:00)
[2017-11-10] MEDS: AMIODARONE 200 MG TABLET PO SCH ×2 (09:14→12:59)
[2017-11-10] MEDS: METOPROLOL SUCCINATE XL 50 MG TABLET PO SCH ×3 (09:14→21:22)
[2017-11-10] MEDS: BACITRACIN OINT 0.9 GM PACK TOP SCH ×4 (09:20→21:23)
[2017-11-10] MEDS: SODIUM CHLORIDE 0.65% NASAL SPRAY 45 ML BOTTLE BOTH NARES SCH ×4 (09:20→21:23)
[2017-11-10] MEDS: OXYMETAZOLINE 0.05% NASAL SPRAY 15 ML BOTTLE BOTH NARES PRN (11:50)
[2017-11-10] MEDS: INSULIN GLARGINE 100 UNIT/ML SUBCUT SCH (21:22)
[2017-11-10] MEDS: ONDANSETRON 4 MG/2 ML VIAL IV PRN (21:22)
[2017-11-11] MEDS: ALBUTEROL/IPRATROPIUM 3 ML NEB RESP TX SCH ×2 (00:46→07:20)
[2017-11-11] MEDS: CHLORHEXIDINE 0.12% ORAL RINSE 60 ML BOTTLE SWISH/SPIT SCH ×2 (02:52→10:37)
[2017-11-11] MEDS: METOCLOPRAMIDE 10 MG/2 ML VIAL IV SCH ×2 (02:53→06:27)
[2017-11-11] MEDS: ONDANSETRON 4 MG/2 ML VIAL IV PRN ×2 (03:01→08:07)
[2017-11-11 04:59] LABS: Basophils # 0.1 10*3/uL (0.0-0.2); Basophils % 0.3 % (0.0-0.8); Eosinophils # 0.1 10*3/uL (0.0-0.87); Eosinophils % 0.6 % (0.00-10.9); Hematocrit 25.2 VOL% (35.7-47.0); Hemoglobin 7.9 GM/DL (12.0-16.0); Immature Granulocytes % 3.9 %; Immature Granulocytes Absolute 0.74 #; Lymphocytes # 1.5 10*3/uL (1.4-4.0); Lymphocytes % 7.8 % (21.3-54.2); Mean Corpuscular HGB Conc 31.3 GM/DL (32-36); Mean Corpuscular Hemoglobin 29 PG (27-34); Mean Corpuscular Volume 91.6 FL (87-102); Monocytes # 1.7 10*3/uL (0.11-0.8); Monocytes % 8.8 % (1.7-12.7); NRBC # 0.02 10*3/uL; Neutrophils # 14.8 10*3/uL (1.4-7.4); Neutrophils % 78.6 % (38.7-73.9); Platelet Count 473 T/CUMM (130-400); Red Blood Count 2.75 MC/CUMM (3.8-5.5); Red Cell Distribution Width 15.9 % (9.3-17.3); White Blood Count 18.8 T/CUMM (4-12)
[2017-11-11 05:11] LABS: INR 1.2; PT Patient Result 12.5 SECS
[2017-11-11 05:25] LABS: Hypochromasia 1+; Lymphocytes 8 % (20-55); Microcytosis 1+; Polychromasia Slight; Segmented Neutrophils 86 % (50-85); Total Cells Counted 100
[2017-11-11 05:26] LABS: Platelet Estimate Increased
[2017-11-11 05:34] LABS: Calcium 8.2 MG/DL (8.5-10.1); Magnesium 2.4 MG/DL (1.8-2.4); Osmolality,Calculated 296.2 MOS/KG (273-304)
[2017-11-11] MEDS: DORNASE ALFA 2.5 MG/2.5 ML VIAL RESP TX SCH (07:25)
[2017-11-11 07:46] VITALS: BP 150/65
[2017-11-11] MEDS: INSULIN REGULAR 100 UNIT/ML SUBCUT SCH (08:09)
[2017-11-11] MEDS: DOCUSATE SODIUM 100 MG CAPSULE PO SCH (10:33)
[2017-11-11] MEDS: BACITRACIN OINT 0.9 GM PACK TOP SCH (10:33)
[2017-11-11] MEDS: AMIODARONE 200 MG TABLET PO SCH (10:33)
[2017-11-11] MEDS: VENLAFAXINE XR 75 MG CAPSULE PO SCH (10:34)
[2017-11-11] MEDS: SODIUM CHLORIDE 0.65% NASAL SPRAY 45 ML BOTTLE BOTH NARES SCH (10:37)
[2017-11-11] MEDS: MONTELUKAST 10 MG TABLET PO SCH (10:37)
[2017-11-11] MEDS: amLODIPine 5 MG TABLET PO SCH (10:37)
[2017-11-11] MEDS: METOPROLOL SUCCINATE XL 50 MG TABLET PO SCH (10:37)
[2017-11-11] MEDS: PANTOPRAZOLE 40 MG TABLET PO SCH (10:37)
[2017-11-11] MEDS ORDERED: WARFARIN 2.5 MG TABLET PO SCH (18:00)
[2017-11-11] MEDS ORDERED: INSULIN GLARGINE 100 UNIT/ML SUBCUT SCH (21:00)
[2017-11-12] MEDS ORDERED: metOLazone 5 MG TABLET PO SCH (09:00)
== END 2017-11-11 10:28 | disposition home health service (06) | DRG 219 ==
LOC: N.2E → N.TELEN 19:09 → N.CVR 10-30 09:19 → N.ICU 11-01 11:34 → N.TELES 11-04 17:56
PROVIDERS: ADMIT Internal Medicine Cardiovascular Disease; ATTEND Internal Medicine Cardiovascular Disease